=== PATIENT | female | born 1960 | race African-American/Black ===

== ENCOUNTER 2016-10-08 20:27 | Emergency (ER) | payer OTHER ==
[~2016-10-08] VITALS: Ht 172.7 cm; Wt 129.1 kg
[~2016-10-08 20:27] MED LIST: ASPI81 PO; CARV20CR PO; DILT240C93 PO; DIVA500T52 PO; LISI-660 PO
[2016-10-08 21:09] LABS: BASOPHILS % (AUTO) 0.1 % (0.0-2.0); HEMATOCRIT 33.1 % (36-46); HEMOGLOBIN 10.4 g/dL (12.0-16.0); LYMPHOCYTES # (AUTO) 1.4 K/uL (1.0-4.8); LYMPHOCYTES % (AUTO) 22.8 % (22.0-44.0); MEAN CORPUSCULAR HEMOGLOBIN 25.6 pg (26.0-34.0); MEAN CORPUSCULAR HGB CONC 31.5 G/dL (31.0-37.0); MEAN CORPUSCULAR VOLUME 81 fL (80-100); MONOCYTES # (AUTO) 0.7 K/uL (0.1-1.0); MONOCYTES % (AUTO) 11.7 % (2.0-9.0); NEUTROPHILS # (AUTO) 3.9 K/uL (1.8-7.7); NEUTROPHILS % (AUTO) 63.4 % (40.0-70.0); PLATELET COUNT (AUTO) 194 K/uL (150-450); RED BLOOD CELL COUNT(AUTO) 4.08 MIL/uL (4.00-5.20); RED CELL DISTRIBUTION WIDTH 19.3 % (11.5-14.5); WHITE BLOOD COUNT (AUTO) 6.2 K/uL (4.5-11.0)
[2016-10-08] MEDS ORDERED: LORazepam 2 MG TABLET PO ONE (21:15)
[2016-10-08] MEDS ORDERED: LORazepam 2 MG/ML VIAL IM ONE (21:15)
[2016-10-08] MEDS ORDERED: HALOPERIDOL LACTATE 5 MG/ML VIAL IM ONE (21:15)
[2016-10-08] MEDS ORDERED: ACETAMINOPHEN 325 MG TABLET PO ONE (21:15)
[2016-10-08] MEDS ORDERED: HALOPERIDOL 5 MG TABLET PO ONE (21:15)
[2016-10-08] MEDS ORDERED: ASPIRIN 81 MG CHEWABLE TABLET PO ONE (21:15)
[2016-10-08 21:20] LABS: ANION GAP 7 mmol/L (8-16); CALCIUM, TOTAL 8.7 mg/dL (8.8-10.5); CARBON DIOXIDE 29 mmol/L (22-29); CHLORIDE 104 mmol/L (98-107); GLOMERULAR FILTR. RATE CALC 56 mL/min (>60); INR 1.2 (0.9-1.1); POTASSIUM 3.8 mmol/L (3.5-5.1); PROTHROMBIN TIME 12.7 SEC (9.4-11.6); SODIUM SERUM 140 mmol/L (136-145); UREA NITROGEN, BLOOD 20 mg/dL (7-18)
[2016-10-08 21:24] LABS: ALANINE AMINOTRANSFERASE 29 U/L (12-78); ALBUMIN 3.1 g/dL (3.4-5.0); ASPARTATE AMINOTRANSFERASE 8 U/L (15-37); BILIRUBIN,TOTAL 0.1 mg/dL (0.1-1.0); CREATINE KINASE, TOTAL 56 U/L (26-192); TOTAL PROTEIN, SERUM 6.9 g/dL (6.4-8.2)
[2016-10-08 21:35] LABS: B-TYPE NATRIURETIC PEPTIDE 495 pg/mL (0-100)
[2016-10-08 21:36] LABS: RBC MORPHOLOGY COMMENT ABNORMAL RBC MORPH
[2016-10-08] MEDS ORDERED: KETOROLAC TROMETHAMINE 30 MG/ML VIAL IVP ONE (21:45)
[2016-10-08] MEDS ORDERED: DILTIAZEM HCL 5 MG/ML 5 ML VIAL IVP ONE (22:00)
[2016-10-08] MEDS ORDERED: DILTIAZEM HCL 60 MG TABLET PO ONE (22:15)
[2016-10-08] MEDS ORDERED: KETOROLAC TROMETHAMINE 60 MG/2 ML VIAL IM ONE (22:15)
[2016-10-08 22:26] LABS: GLUCOSE,POINT OF CARE 103 MG/DL (70-110)
[2016-10-08 22:33] VITALS: BP 153/57
[2016-10-08 22:55] LABS: APPEARANCE,URINE CLEAR (CLEAR); GLUCOSE, URINE (UA) NEGATIVE (NEGATIVE); KETONES,URINE NEGATIVE (NEGATIVE); LEUKOCYTE ESTERASE ,URINE LARGE (NEGATIVE); OCCULT BLOOD,URINE NEGATIVE (NEGATIVE); PROTEIN,URINE NEGATIVE (NEGATIVE)
[2016-10-08 23:07] LABS: ADD UA MICROSCOPIC YES
[2016-10-08 23:12] LABS: SQUAMOUS EPITHELIAL CELL,UR Moderate /LPF (None Seen)
[2016-10-08 23:13] LABS: RBC,URINE None Seen /HPF (0-2)
== END 2016-10-08 22:47 | disposition left against medical advice (07) ==
LOC: EMS 20:32
DX: I11.0 Hypertensive heart disease with heart failure (principal); I50.9 Heart failure, unspecified; I25.10 Atherosclerotic heart disease of native coronary artery without angina pectoris; E78.00 Pure hypercholesterolemia, unspecified; R60.0 Localized edema; Z79.82 Long term (current) use of aspirin
CPT/HCPCS: 36415; 71010; 80053; 80307; 81001; 82550; 82948; 82962; 83880; 84484; 85025; 85610; 85730; 87086; 93005; 96372; 99285; G0480; J1630; J1885; J2060

== ENCOUNTER 2016-10-10 03:17 | Emergency (ER) | payer OTHER ==
[~2016-10-10] VITALS: Ht 172.7 cm; Wt 127.3 kg
[2016-10-10 04:14] LABS: BASOPHILS % (AUTO) 0.5 % (0.0-2.0); EOSINOPHILS % (AUTO) 2.5 % (1.0-6.0); HEMATOCRIT 31.7 % (36-46); HEMOGLOBIN 9.8 g/dL (12.0-16.0); MEAN CORPUSCULAR HEMOGLOBIN 25.6 pg (26.0-34.0); MEAN CORPUSCULAR HGB CONC 31.1 G/dL (31.0-37.0); MEAN CORPUSCULAR VOLUME 82 fL (80-100); MONOCYTES # (AUTO) 0.4 K/uL (0.1-1.0); NEUTROPHILS # (AUTO) 3.4 K/uL (1.8-7.7); PLATELET COUNT (AUTO) 169 K/uL (150-450); RED BLOOD CELL COUNT(AUTO) 3.85 MIL/uL (4.00-5.20); RED CELL DISTRIBUTION WIDTH 19.3 % (11.5-14.5)
[2016-10-10] MEDS ORDERED: DILTIAZEM HCL 5 MG/ML 5 ML VIAL IVP ONE (04:15)
[2016-10-10] MEDS ORDERED: ASPIRIN 325 MG TABLET PO ONE (04:15)
[2016-10-10] MEDS ORDERED: KETOROLAC TROMETHAMINE 30 MG/ML VIAL IVP ONE (04:15)
[2016-10-10] MEDS ORDERED: NITROGLYCERIN 0.4 MG SUBLINGUAL TABLET #25 SL ONE (04:15)
[2016-10-10 04:19] LABS: ANION GAP 8 mmol/L (8-16); CALCIUM, TOTAL 8.1 mg/dL (8.8-10.5); CARBON DIOXIDE 27 mmol/L (22-29); CHLORIDE 106 mmol/L (98-107); CREATININE 1.17 mg/dL (0.60-1.30); GLOMERULAR FILTR. RATE CALC 58 mL/min (>60); POTASSIUM 4.2 mmol/L (3.5-5.1); SODIUM SERUM 141 mmol/L (136-145); UREA NITROGEN, BLOOD 24 mg/dL (7-18)
[2016-10-10 04:26] LABS: ALANINE AMINOTRANSFERASE 18 U/L (12-78); ALBUMIN 3.2 g/dL (3.4-5.0); ASPARTATE AMINOTRANSFERASE 12 U/L (15-37); BILIRUBIN,TOTAL 0.3 mg/dL (0.1-1.0); CREATINE KINASE, TOTAL 44 U/L (26-192); TOTAL PROTEIN, SERUM 6.4 g/dL (6.4-8.2)
[2016-10-10 05:01] LABS: B-TYPE NATRIURETIC PEPTIDE 485 pg/mL (0-100)
[2016-10-10 05:44] VITALS: BP 121/89
[2016-10-10] MEDS ORDERED: ACETAMINOPHEN 325 MG TABLET PO PRN (05:45)
[2016-10-10] MEDS ORDERED: ONDANSETRON HCL 4 MG/2 ML VIAL IVP PRN (05:45)
[2016-10-10] MEDS ORDERED: 0.9% SODIUM CHLORIDE 10 ML SYRINGE IVP PRN (05:45)
[2016-10-10] MEDS ORDERED: OxyCODONE HCL/ACETAMINOPHEN 5-325 MG TABLET PO PRN ×2 (05:45)
[2016-10-10] MEDS ORDERED: MAGNESIUM HYDROXIDE SUSPENSION 30 ML UDCUP PO PRN (05:45)
[2016-10-10] MEDS ORDERED: NITROGLYCERIN 2% (1 GM=INCH) PACKET TP SCH (06:00)
[2016-10-10 08:15] LABS: APPEARANCE,URINE TURBID (CLEAR); GLUCOSE, URINE (UA) NEGATIVE (NEGATIVE); KETONES,URINE NEGATIVE (NEGATIVE); LEUKOCYTE ESTERASE ,URINE LARGE (NEGATIVE); OCCULT BLOOD,URINE NEGATIVE (NEGATIVE); PH,URINE 5.5 (5.0-8.0); PROTEIN,URINE TRACE (NEGATIVE)
[2016-10-10 08:17] LABS: ADD UA MICROSCOPIC YES
[2016-10-10 08:25] LABS: RBC,URINE 0-2 /HPF (0-2)
[2016-10-10 08:26] LABS: CALCIUM OXALATE CRYSTALS,UR Moderate /LPF (None Seen); SQUAMOUS EPITHELIAL CELL,UR Few /LPF (None Seen)
[2016-10-10] MEDS ORDERED: PANTOPRAZOLE SODIUM 40 MG/VIAL IVP SCH (09:00)
[2016-10-10] MEDS ORDERED: DILTIAZEM HCL CD 240 MG ER CAPSULE PO SCH (09:00)
[2016-10-10] MEDS ORDERED: DOCUSATE SODIUM 100 MG CAPSULE PO SCH (09:00)
[2016-10-10] MEDS ORDERED: ASPIRIN 81 MG CHEWABLE TABLET PO SCH (09:00)
[2016-10-10] MEDS ORDERED: CARVEDILOL PHOSPHATE 20 MG CR CAPSULE PO SCH (09:00)
[2016-10-10] MEDS ORDERED: LISINOPRIL 5 MG TABLET PO SCH (09:00)
[2016-10-10] MEDS ORDERED: DIVALPROEX SODIUM 500 MG ER TABLET PO SCH (21:00)
== END 2016-10-10 06:06 | disposition left against medical advice (07) ==
LOC: EMS 03:19
DX: I11.0 Hypertensive heart disease with heart failure (principal); I50.9 Heart failure, unspecified; I48.91 Unspecified atrial fibrillation; E78.00 Pure hypercholesterolemia, unspecified; F20.9 Schizophrenia, unspecified; F12.10 Cannabis abuse, uncomplicated; Z79.82 Long term (current) use of aspirin
CPT/HCPCS: 36415; 71010; 80053; 80307; 81001; 82550; 83880; 84484; 85025; 87086; 93005; 96374; 96375; 99285; G0480; J1885; J3490

== ENCOUNTER 2016-10-13 19:19 | Emergency (ER) | payer OTHER ==
[~2016-10-13] VITALS: Ht 172.7 cm; Wt 90.5 kg
[2016-10-13] MEDS ORDERED: KETOROLAC TROMETHAMINE 60 MG/2 ML VIAL IM ONE (21:45)
[2016-10-13 22:12] VITALS: BP 141/82
== END 2016-10-13 22:12 | disposition home or self-care (01) ==
LOC: EMS 19:20
DX: M79.672 Pain in left foot (principal); M79.671 Pain in right foot; I11.0 Hypertensive heart disease with heart failure; I50.9 Heart failure, unspecified; E78.00 Pure hypercholesterolemia, unspecified; Z79.4 Long term (current) use of insulin
CPT/HCPCS: 96372; 99283; J1885

== ENCOUNTER 2016-10-20 03:34 | Emergency (ER) | payer OTHER ==
[~2016-10-20] VITALS: Ht 167.6 cm; Wt 140.9 kg
[2016-10-20] MEDS ORDERED: DILTIAZEM HCL 5 MG/ML 5 ML VIAL IVP ONE (04:15)
[2016-10-20 04:45] VITALS: BP 115/95
[2016-10-20] MEDS ORDERED: DILTIAZEM HCL 60 MG TABLET PO ONE (04:45)
== END 2016-10-20 05:07 | disposition left against medical advice (07) ==
LOC: EMS 03:36
DX: I48.91 Unspecified atrial fibrillation (principal); R60.0 Localized edema; F20.9 Schizophrenia, unspecified; I11.0 Hypertensive heart disease with heart failure; I50.9 Heart failure, unspecified; E78.00 Pure hypercholesterolemia, unspecified; Z79.82 Long term (current) use of aspirin
CPT/HCPCS: 93005; 99285

== ENCOUNTER 2016-10-20 08:39 | Emergency (ER) | payer OTHER | END 2016-10-20 08:55 | disposition left against medical advice (07) | LOC: EMS 08:41 | DX: F25.9 Schizoaffective disorder, unspecified (principal); I11.0 Hypertensive heart disease with heart failure; I50.9 Heart failure, unspecified; I48.91 Unspecified atrial fibrillation; E78.00 Pure hypercholesterolemia, unspecified; Z79.82 Long term (current) use of aspirin | CPT/HCPCS: 99283 ==

== ENCOUNTER 2016-10-20 17:22 | Inpatient (IN) | payer MEDICAID, OTHER ==
[~2016-10-20] VITALS: Ht 170.2 cm; Wt 106.4 kg
[2016-10-20] MEDS ORDERED: DILTIAZEM HCL 60 MG TABLET PO ONE (18:30)
[2016-10-20 18:41] LABS: EOSINOPHILS % (AUTO) 2.2 % (1.0-6.0); HEMATOCRIT 32.5 % (36-46); HEMOGLOBIN 10.1 g/dL (12.0-16.0); LYMPHOCYTES # (AUTO) 1.1 K/uL (1.0-4.8); LYMPHOCYTES % (AUTO) 24.4 % (22.0-44.0); MEAN CORPUSCULAR HEMOGLOBIN 25.3 pg (26.0-34.0); MEAN CORPUSCULAR HGB CONC 30.9 G/dL (31.0-37.0); MEAN CORPUSCULAR VOLUME 82 fL (80-100); MONOCYTES # (AUTO) 0.5 K/uL (0.1-1.0); MONOCYTES % (AUTO) 11.2 % (2.0-9.0); NEUTROPHILS # (AUTO) 2.7 K/uL (1.8-7.7); NEUTROPHILS % (AUTO) 61.2 % (40.0-70.0); PLATELET COUNT (AUTO) 355 K/uL (150-450); RED BLOOD CELL COUNT(AUTO) 3.98 MIL/uL (4.00-5.20); RED CELL DISTRIBUTION WIDTH 23.9 % (11.5-14.5); WHITE BLOOD COUNT (AUTO) 4.4 K/uL (4.5-11.0)
[2016-10-20] MEDS ORDERED: DILTIAZEM HCL CD 120 MG ER CAPSULE PO ONE (18:45)
[2016-10-20 18:57] LABS: ANION GAP 9 mmol/L (8-16); CALCIUM, TOTAL 8.8 mg/dL (8.8-10.5); CARBON DIOXIDE 27 mmol/L (22-29); CHLORIDE 103 mmol/L (98-107); CREATININE 0.89 mg/dL (0.60-1.30); GLOMERULAR FILTR. RATE CALC > 60 mL/min (>60); POTASSIUM 3.9 mmol/L (3.5-5.1); SODIUM SERUM 139 mmol/L (136-145); UREA NITROGEN, BLOOD 18 mg/dL (7-18)
[2016-10-20 19:03] LABS: ALANINE AMINOTRANSFERASE 55 U/L (12-78); ALBUMIN 3.3 g/dL (3.4-5.0); ASPARTATE AMINOTRANSFERASE 31 U/L (15-37); BILIRUBIN,TOTAL 0.3 mg/dL (0.1-1.0)
[2016-10-20 19:06] LABS: RBC MORPHOLOGY COMMENT ABNORMAL RBC MORPH
[2016-10-20] MEDS ORDERED: HALOPERIDOL LACTATE 5 MG/ML VIAL IM ONE (19:30)
[2016-10-20] MEDS ORDERED: LORazepam 2 MG/ML VIAL IM ONE (19:30)
[2016-10-20] MEDS ORDERED: LORazepam 2 MG TABLET PO ONE (19:30)
[2016-10-20] MEDS ORDERED: DiphenhydrAMINE HCL 50 MG/ML VIAL IM ONE (19:30)
[2016-10-20] MEDS ORDERED: ZOLPIDEM TARTRATE 10 MG TABLET PO PRN (20:15)
[2016-10-20 21:11] VITALS: BP 98/67
[2016-10-21] MEDS: LORazepam 2 MG TABLET PO PRN ×2 (09:05→14:14)
[2016-10-21 10:15] VITALS: BP 150/72
[2016-10-21] MEDS ORDERED: MAG HYDROX/AL HYDROX/SIMETH ES 30 ML SUSPENSION UDCUP PO PRN (10:45)
[2016-10-21] MEDS ORDERED: LOPERAMIDE HCL 2 MG CAPSULE PO PRN (10:45)
[2016-10-21] MEDS ORDERED: MAGNESIUM HYDROXIDE SUSPENSION 30 ML UDCUP PO PRN (10:45)
[2016-10-21] MEDS ORDERED: ACETAMINOPHEN 325 MG TABLET PO PRN (10:45)
[2016-10-21] MEDS ORDERED: BACITRACIN 28.4 GM OINTMENT TP PRN (10:45)
[2016-10-21] MEDS ORDERED: CloNIDine HCL 0.1 MG TABLET PO PRN (10:45)
[2016-10-21] MEDS ORDERED: BENZOCAINE/MENTHOL LOZENGE [8 LOZENGES/PACKET] MM PRN (10:45)
[2016-10-21] MEDS ORDERED: ONDANSETRON HCL 4 MG TABLET PO PRN (10:45)
[2016-10-21] MEDS ORDERED: PETROLATUM,WHITE 71 GM JELLY TP PRN (10:45)
[2016-10-21] MEDS: CARVEDILOL PHOSPHATE 20 MG CR CAPSULE PO SCH (11:47)
[2016-10-21] MEDS: FUROSEMIDE 40 MG TABLET PO SCH (11:47)
[2016-10-21 12:17] VITALS: BP 136/83
[2016-10-21] MEDS: TraMADol HCL 50 MG TABLET PO PRN ×2 (12:17→20:42)
[2016-10-21] MEDS: QUEtiapine FUMARATE 100 MG TABLET PO PRN (14:14)
[2016-10-21 18:02] VITALS: BP 127/87
[2016-10-21] MEDS: DIVALPROEX SODIUM 500 MG ER TABLET PO SCH (20:22)
[2016-10-21 20:40] VITALS: BP 130/88
[2016-10-22 02:31] VITALS: BP 120/91
[2016-10-22] MEDS: TraMADol HCL 50 MG TABLET PO PRN ×2 (02:44→09:56)
[2016-10-22] MEDS: LORazepam 2 MG TABLET PO PRN (04:10)
[2016-10-22] MEDS: LEVOTHYROXINE SODIUM 25 MCG TABLET PO SCH (06:05)
[2016-10-22] MEDS: CARVEDILOL PHOSPHATE 20 MG CR CAPSULE PO SCH (08:10)
[2016-10-22] MEDS: ASPIRIN 81 MG CHEWABLE TABLET PO SCH (08:10)
[2016-10-22] MEDS: QUEtiapine FUMARATE 100 MG TABLET PO PRN (08:10)
[2016-10-22] MEDS: HALOPERIDOL 5 MG TABLET PO SCH (08:10)
[2016-10-22] MEDS: FUROSEMIDE 40 MG TABLET PO SCH (08:11)
[2016-10-22] MEDS: DILTIAZEM HCL CD 240 MG ER CAPSULE PO SCH (08:11)
[2016-10-22] MEDS: LISINOPRIL 5 MG TABLET PO SCH (08:11)
[2016-10-22 09:53] VITALS: BP 123/78
[2016-10-22 20:36] VITALS: BP 115/57
[2016-10-22] MEDS: DIVALPROEX SODIUM 500 MG ER TABLET PO SCH (21:32)
[2016-10-23] MEDS: LEVOTHYROXINE SODIUM 25 MCG TABLET PO SCH (06:43)
[2016-10-23 08:00] VITALS: BP 125/79
[2016-10-23] MEDS: CARVEDILOL PHOSPHATE 20 MG CR CAPSULE PO SCH (09:17)
[2016-10-23] MEDS: LORazepam 2 MG TABLET PO PRN (09:17)
[2016-10-23] MEDS: QUEtiapine FUMARATE 100 MG TABLET PO PRN (09:17)
[2016-10-23] MEDS: DILTIAZEM HCL CD 240 MG ER CAPSULE PO SCH (09:17)
[2016-10-23] MEDS: HALOPERIDOL 5 MG TABLET PO SCH (09:17)
[2016-10-23] MEDS: POTASSIUM CHLORIDE 10 MEQ ER TABLET PO SCH (09:17)
[2016-10-23] MEDS: LISINOPRIL 5 MG TABLET PO SCH (09:17)
[2016-10-23] MEDS: FUROSEMIDE 40 MG TABLET PO SCH (09:18)
[2016-10-23] MEDS: ASPIRIN 81 MG CHEWABLE TABLET PO SCH (09:19)
[2016-10-23] MEDS: IBUPROFEN 600 MG TABLET PO PRN (09:19)
[2016-10-23 16:00] VITALS: BP 106/75
[2016-10-23] MEDS: DIVALPROEX SODIUM 500 MG ER TABLET PO SCH (20:27)
[2016-10-23] MEDS: TraMADol HCL 50 MG TABLET PO PRN (23:54)
[2016-10-24] VITALS (7 sets, daily range): BP systolic 106–120; BP diastolic 58–71
[2016-10-24] MEDS: IBUPROFEN 600 MG TABLET PO PRN (03:59)
[2016-10-24] MEDS: ALBUTEROL SULFATE HFA 90 MCG/PUFF 8 GM INHALER IH PRN ×3 (04:15→23:52)
[2016-10-24] MEDS: LEVOTHYROXINE SODIUM 25 MCG TABLET PO SCH (07:00)
[2016-10-24] MEDS: FUROSEMIDE 40 MG TABLET PO SCH (08:07)
[2016-10-24] MEDS: TraMADol HCL 50 MG TABLET PO PRN ×3 (08:07→23:42)
[2016-10-24] MEDS: CARVEDILOL PHOSPHATE 20 MG CR CAPSULE PO SCH (08:07)
[2016-10-24] MEDS: LORazepam 2 MG TABLET PO PRN (08:07)
[2016-10-24] MEDS: HALOPERIDOL 5 MG TABLET PO SCH (08:07)
[2016-10-24] MEDS: QUEtiapine FUMARATE 100 MG TABLET PO PRN (08:07)
[2016-10-24] MEDS: ASPIRIN 81 MG CHEWABLE TABLET PO SCH (08:07)
[2016-10-24] MEDS: POTASSIUM CHLORIDE 10 MEQ ER TABLET PO SCH (08:07)
[2016-10-24] MEDS: LISINOPRIL 5 MG TABLET PO SCH (08:07)
[2016-10-24] MEDS: DILTIAZEM HCL CD 240 MG ER CAPSULE PO SCH (08:08)
[2016-10-24] MEDS ORDERED: HALOPERIDOL DECANOATE 50 MG/ML VIAL IM SCH (18:00)
[2016-10-24] MEDS: DIVALPROEX SODIUM 500 MG ER TABLET PO SCH (20:37)
[2016-10-25] MEDS: TraMADol HCL 50 MG TABLET PO PRN (05:46)
[2016-10-25] MEDS: LEVOTHYROXINE SODIUM 25 MCG TABLET PO SCH (06:03)
[2016-10-25 08:45] VITALS: BP 140/91
[2016-10-25] MEDS: HALOPERIDOL 5 MG TABLET PO SCH (09:39)
[2016-10-25] MEDS: ASPIRIN 81 MG CHEWABLE TABLET PO SCH (09:39)
[2016-10-25] MEDS: POTASSIUM CHLORIDE 10 MEQ ER TABLET PO SCH (09:39)
[2016-10-25] MEDS: FUROSEMIDE 40 MG TABLET PO SCH (09:40)
[2016-10-25] MEDS: CARVEDILOL PHOSPHATE 20 MG CR CAPSULE PO SCH (09:40)
[2016-10-25] MEDS: LISINOPRIL 5 MG TABLET PO SCH (09:40)
[2016-10-25] MEDS: DILTIAZEM HCL CD 240 MG ER CAPSULE PO SCH (09:40)
[2016-10-25] MEDS ORDERED: HALO5 PO (15:37)
[2016-10-25] MEDS ORDERED: LEVO25TA9 PO (15:37)
[2016-10-25] MEDS ORDERED: KDUR10 PO (15:37)
[2016-10-25] MEDS ORDERED: FURO40 PO (15:37)
[2016-10-25] MEDS ORDERED: HALOD50I IM (15:37)
== END 2016-10-25 16:43 | disposition home or self-care (01) | DRG 750 ==
LOC: EMS 17:27 → 3EC 20:47
PROVIDERS: ADMIT Psychiatry & Neurology Psychiatry; ATTEND Psychiatry & Neurology Psychiatry
DX: F25.0 Schizoaffective disorder, bipolar type (principal); I11.0 Hypertensive heart disease with heart failure; I50.32 Chronic diastolic (congestive) heart failure; E03.9 Hypothyroidism, unspecified; E55.9 Vitamin D deficiency, unspecified; E66.9 Obesity, unspecified; E78.00 Pure hypercholesterolemia, unspecified; F12.90 Cannabis use, unspecified, uncomplicated; F17.210 Nicotine dependence, cigarettes, uncomplicated; F22 Delusional disorders; I48.91 Unspecified atrial fibrillation; J44.9 Chronic obstructive pulmonary disease, unspecified; Z71.6 Tobacco abuse counseling; Z68.32 Body mass index [BMI] 32.0-32.9, adult; Z90.49 Acquired absence of other specified parts of digestive tract; Z91.19 Patient's noncompliance with other medical treatment and regimen; Z79.82 Long term (current) use of aspirin; Z79.899 Other long term (current) drug therapy; Z56.0 Unemployment, unspecified
CPT/HCPCS: 93970; 96372; 99285; G0480; J1200; J1630; J1631; J2060; J3535

== ENCOUNTER 2016-10-25 23:46 | Emergency (ER) | payer MEDICAID ==
[~2016-10-25 23:46] MED LIST changes: +FURO40 PO; +HALO5 PO; +HALOD50I IM; +KDUR10 PO; +LEVO25TA9 PO
== END 2016-10-26 00:48 | disposition left against medical advice (07) ==
LOC: EMS 23:48
DX: G47.30 Sleep apnea, unspecified (principal); Z53.21 Procedure and treatment not carried out due to patient leaving prior to being seen by health care provider

== ENCOUNTER 2016-10-26 16:12 | Emergency (ER) | payer MEDICAID, OTHER ==
[~2016-10-26] VITALS: Ht 167.6 cm; Wt 129.1 kg
[2016-10-26 18:13] LABS: APPEARANCE,URINE CLEAR (CLEAR); GLUCOSE, URINE (UA) NEGATIVE (NEGATIVE); KETONES,URINE TRACE mg/dL (NEGATIVE); LEUKOCYTE ESTERASE ,URINE LARGE (NEGATIVE); OCCULT BLOOD,URINE NEGATIVE (NEGATIVE); PROTEIN,URINE NEGATIVE (NEGATIVE)
[2016-10-26 18:25] LABS: BASOPHILS % (AUTO) 0.5 % (0.0-2.0); EOSINOPHILS % (AUTO) 3.2 % (1.0-6.0); HEMATOCRIT 28.5 % (36-46); HEMOGLOBIN 9.1 g/dL (12.0-16.0); LYMPHOCYTES # (AUTO) 1.2 K/uL (1.0-4.8); LYMPHOCYTES % (AUTO) 34.1 % (22.0-44.0); MEAN CORPUSCULAR HEMOGLOBIN 26.2 pg (26.0-34.0); MEAN CORPUSCULAR HGB CONC 31.9 G/dL (31.0-37.0); MEAN CORPUSCULAR VOLUME 82 fL (80-100); MONOCYTES # (AUTO) 0.3 K/uL (0.1-1.0); MONOCYTES % (AUTO) 9.9 % (2.0-9.0); NEUTROPHILS # (AUTO) 1.8 K/uL (1.8-7.7); NEUTROPHILS % (AUTO) 52.3 % (40.0-70.0); PLATELET COUNT (AUTO) 264 K/uL (150-450); RED BLOOD CELL COUNT(AUTO) 3.46 MIL/uL (4.00-5.20); RED CELL DISTRIBUTION WIDTH 24.3 % (11.5-14.5); WHITE BLOOD COUNT (AUTO) 3.5 K/uL (4.5-11.0)
[2016-10-26 18:27] LABS: ADD UA MICROSCOPIC YES
[2016-10-26] MEDS ORDERED: DILTIAZEM HCL 5 MG/ML 5 ML VIAL IVP ONE (18:30)
[2016-10-26 18:39] LABS: ANION GAP 6 mmol/L (8-16); CARBON DIOXIDE 29 mmol/L (22-29); CHLORIDE 106 mmol/L (98-107); CREATININE 0.97 mg/dL (0.60-1.30); GLOMERULAR FILTR. RATE CALC > 60 mL/min (>60); POTASSIUM 4.3 mmol/L (3.5-5.1); SODIUM SERUM 141 mmol/L (136-145); UREA NITROGEN, BLOOD 16 mg/dL (7-18)
[2016-10-26 18:43] LABS: SQUAMOUS EPITHELIAL CELL,UR Moderate /LPF (None Seen); URINALYSIS COMMENT Few Trichomonas seen; WBC,URINE 26-50 /HPF (0-5)
[2016-10-26 18:44] LABS: ALANINE AMINOTRANSFERASE 18 U/L (12-78); ALBUMIN 3.4 g/dL (3.4-5.0); ASPARTATE AMINOTRANSFERASE 11 U/L (15-37); BILIRUBIN,TOTAL 0.3 mg/dL (0.1-1.0)
[2016-10-26] MEDS ORDERED: KETOROLAC TROMETHAMINE 60 MG/2 ML VIAL IM ONE (18:45)
[2016-10-26] MEDS ORDERED: DILTIAZEM HCL 60 MG TABLET PO ONE (18:45)
[2016-10-26 18:46] LABS: RBC MORPHOLOGY COMMENT ABNORMAL RBC MORPH
[2016-10-26 18:59] LABS: B-TYPE NATRIURETIC PEPTIDE 141 pg/mL (0-100)
[2016-10-26 20:39] VITALS: BP 125/81
== END 2016-10-26 20:39 | disposition home or self-care (01) ==
LOC: EMS 16:17
DX: R07.89 Other chest pain (principal); R60.9 Edema, unspecified; R26.2 Difficulty in walking, not elsewhere classified; I11.0 Hypertensive heart disease with heart failure; I50.9 Heart failure, unspecified; E78.00 Pure hypercholesterolemia, unspecified; I48.91 Unspecified atrial fibrillation; Z79.82 Long term (current) use of aspirin
CPT/HCPCS: 36415; 80053; 80307; 81001; 83880; 84484; 85025; 87086; 93005; 96372; 99285; J1885

== ENCOUNTER 2016-10-30 20:03 | Emergency (ER) | payer OTHER ==
[2016-10-30 21:07] LABS: GLUCOSE COMMENT 1 Doctor Notified; GLUCOSE,POINT OF CARE 140 MG/DL (70-110)
== END 2016-10-30 20:30 | disposition left against medical advice (07) ==
LOC: EMS 20:06
DX: M79.606 Pain in leg, unspecified (principal); Z53.21 Procedure and treatment not carried out due to patient leaving prior to being seen by health care provider
CPT/HCPCS: 82962

== ENCOUNTER 2016-10-30 20:59 | Emergency (ER) | payer OTHER ==
[~2016-10-30] VITALS: Ht 170.2 cm; Wt 100.0 kg
[2016-10-30 22:22] LABS: HEMATOCRIT 35.6 % (36-46); HEMOGLOBIN 11.1 g/dL (12.0-16.0); MEAN CORPUSCULAR HGB CONC 31.3 G/dL (31.0-37.0); MEAN CORPUSCULAR VOLUME 83 fL (80-100); PLATELET COUNT (AUTO) 166 K/uL (150-450); RED BLOOD CELL COUNT(AUTO) 4.29 MIL/uL (4.00-5.20)
[2016-10-30 22:39] LABS: ALANINE AMINOTRANSFERASE 40 U/L (12-78); ASPARTATE AMINOTRANSFERASE 30 U/L (15-37); BILIRUBIN,TOTAL 0.4 mg/dL (0.1-1.0); CALCIUM, TOTAL 8.9 mg/dL (8.8-10.5); CARBON DIOXIDE 26 mmol/L (22-29); CREATININE 1.01 mg/dL (0.60-1.30); GLOMERULAR FILTR. RATE CALC > 60 mL/min (>60); TOTAL PROTEIN, SERUM 7.6 g/dL (6.4-8.2); UREA NITROGEN, BLOOD 17 mg/dL (7-18)
[2016-10-30 22:40] LABS: BASOPHILS % (AUTO) 0.2 % (0.0-2.0); EOSINOPHILS % (AUTO) 1.25 % (1.0-6.0); LYMPHOCYTES % (AUTO) 24.9 % (22.0-44.0); MONOCYTES % (AUTO) 7.7 % (2.0-9.0); NEUTROPHILS % (AUTO) 65.9 % (40.0-70.0)
[2016-10-30 22:41] LABS: BASOPHILS # (AUTO) 0.01 K/uL (0.00-0.20); EOSINOPHILS # (AUTO) 0.04 K/uL (0.00-0.70); LYMPHOCYTES # (AUTO) 0.8 K/uL (1.0-4.8); MONOCYTES # (AUTO) 0.2 K/uL (0.1-1.0)
[2016-10-30 22:42] LABS: RBC MORPHOLOGY COMMENT ABNORMAL RBC MORPH
[2016-10-30 22:45] LABS: BAND NEUTROPHILS % (MANUAL) 2 % (1-5); EOSINOPHILS % (MANUAL) 1 % (1-6); LYMPHOCYTES % (MANUAL) 15 % (22-44); TOTAL CELLS COUNTED 100
[2016-10-30 22:46] LABS: ALBUMIN 3.6 g/dL (3.4-5.0); ANION GAP 12 mmol/L (8-16); CHLORIDE 103 mmol/L (98-107); POTASSIUM 4.1 mmol/L (3.5-5.1); SODIUM SERUM 141 mmol/L (136-145)
[2016-10-30 23:28] LABS: THYROID STIMULATING HORMONE 3.65 uIU/mL (0.36-3.74)
[2016-10-30 23:29] LABS: VALPROIC ACID < 3 mcg/mL (50-100)
[2016-10-31] MEDS ORDERED: KETOROLAC TROMETHAMINE 30 MG/ML VIAL IVP ONE (00:15)
[2016-10-31] MEDS ORDERED: FUROSEMIDE 40 MG/4 ML VIAL IVP ONE (00:15)
[2016-10-31] MEDS ORDERED: ALBUTEROL SULFATE 2.5 MG/0.5 ML NEB SOLUTION NEB ONE (00:15)
[2016-10-31] MEDS ORDERED: NITROGLYCERIN 2% (1 GM=INCH) PACKET TP ONE (00:15)
[2016-10-31] MEDS ORDERED: IPRATROPIUM BROMIDE 0.5 MG/2.5 ML NEB SOLUTION NEB ONE (00:15)
[2016-10-31 00:39] LABS: APPEARANCE,URINE CLEAR (CLEAR); GLUCOSE, URINE (UA) NEGATIVE (NEGATIVE); KETONES,URINE NEGATIVE (NEGATIVE); LEUKOCYTE ESTERASE ,URINE MODERATE (NEGATIVE); OCCULT BLOOD,URINE TRACE (NEGATIVE); PROTEIN,URINE TRACE (NEGATIVE)
[2016-10-31 00:44] LABS: ADD UA MICROSCOPIC YES
[2016-10-31] MEDS ORDERED: DILTIAZEM HCL 5 MG/ML 5 ML VIAL IVP ONE (01:00)
[2016-10-31 01:02] LABS: RBC,URINE 0-2 /HPF (0-2); SQUAMOUS EPITHELIAL CELL,UR Few /LPF (None Seen)
[2016-10-31] MEDS ORDERED: NITROGLYCERIN 2% (1 GM=INCH) PACKET TP PRN (01:30)
[2016-10-31] MEDS ORDERED: MORPHINE SULFATE 2 MG/ML SYRINGE IVP PRN (01:30)
[2016-10-31] MEDS ORDERED: ZOLPIDEM TARTRATE 10 MG TABLET PO PRN (01:30)
[2016-10-31] MEDS ORDERED: ACETAMINOPHEN 325 MG TABLET PO PRN (01:30)
[2016-10-31] MEDS ORDERED: LORazepam 1 MG TABLET PO PRN (01:30)
[2016-10-31] MEDS ORDERED: NITROGLYCERIN 0.4 MG SUBLINGUAL TABLET #25 SL PRN (01:30)
[2016-10-31] MEDS ORDERED: DILTIAZEM HCL 125 MG in DEXTROSE 5%-WATER 100 ML IV PRN (01:45)
[2016-10-31] MEDS ORDERED: DIGOXIN 250 MCG/ML 2 ML AMP IVP ONE (05:00)
[2016-10-31] MEDS ORDERED: AMIODARONE HCL 150 MG in DEXTROSE 5%-WATER 97 ML IV ONE (05:15)
[2016-10-31] MEDS ORDERED: AMIODARONE HCL 360 MG in DEXTROSE 5%-WATER 242.8 ML IV ONE (05:30)
[2016-10-31 06:18] VITALS: BP 134/81
[2016-10-31] MEDS ORDERED: FUROSEMIDE 40 MG/4 ML VIAL IVP SCH (06:30)
[2016-10-31] MEDS ORDERED: LEVOTHYROXINE SODIUM 25 MCG TABLET PO SCH (06:30)
[2016-10-31] MEDS ORDERED: DOCUSATE SODIUM 100 MG CAPSULE PO SCH (09:00)
[2016-10-31] MEDS ORDERED: DILTIAZEM HCL CD 240 MG ER CAPSULE PO SCH (09:00)
[2016-10-31] MEDS ORDERED: CARVEDILOL PHOSPHATE 20 MG CR CAPSULE PO SCH (09:00)
[2016-10-31] MEDS ORDERED: POTASSIUM CHLORIDE 10 MEQ ER TABLET PO SCH (09:00)
[2016-10-31] MEDS ORDERED: LISINOPRIL 5 MG TABLET PO SCH (09:00)
[2016-10-31] MEDS ORDERED: PANTOPRAZOLE SODIUM 40 MG/VIAL IVP SCH (09:00)
[2016-10-31] MEDS ORDERED: ASPIRIN 81 MG CHEWABLE TABLET PO SCH (09:00)
[2016-10-31] MEDS ORDERED: HALOPERIDOL 5 MG TABLET PO SCH (09:00)
[2016-10-31] MEDS ORDERED: AMIODARONE HCL 540 MG in DEXTROSE 5%-WATER 239.2 ML IV ONE (11:30)
[2016-10-31] MEDS ORDERED: DIVALPROEX SODIUM 500 MG ER TABLET PO SCH (21:00)
[2016-11-01] MEDS ORDERED: AMIODARONE HCL 750 MG in DEXTROSE 5%-WATER 485 ML IV SCH (05:30)
[2016-11-07] MEDS ORDERED: HALOPERIDOL DECANOATE 50 MG/ML VIAL IM SCH (09:00)
== END 2016-10-31 08:06 | disposition left against medical advice (07) ==
LOC: EMS 21:01 → UNDOADMIN 10-31 03:06 → 5S 10-31 03:06
DX: I11.0 Hypertensive heart disease with heart failure (principal); I50.9 Heart failure, unspecified; F25.9 Schizoaffective disorder, unspecified; E78.00 Pure hypercholesterolemia, unspecified; I48.91 Unspecified atrial fibrillation; F17.210 Nicotine dependence, cigarettes, uncomplicated
CPT/HCPCS: 36415; 71010; 80053; 80164; 80307; 81001; 83880; 84443; 84484; 85025; 87077; 87086; 87186; 93005; 94640; 96374; 96375; 99285; J1885; J1940; J3490 ×2; J7060; J7613; J0282

== ENCOUNTER 2016-11-03 00:36 | Inpatient (IN) | payer OTHER ==
[~2016-11-03] VITALS: Ht 167.6 cm; Wt 104.4 kg
[2016-11-03 01:27] LABS: GLUCOSE,POINT OF CARE 144 MG/DL (70-110)
[2016-11-03 02:08] LABS: BASOPHILS % (AUTO) 0.4 % (0.0-2.0); EOSINOPHILS % (AUTO) 0.6 % (1.0-6.0); HEMATOCRIT 31.6 % (36-46); HEMOGLOBIN 9.6 g/dL (12.0-16.0); LYMPHOCYTES # (AUTO) 0.8 K/uL (1.0-4.8); LYMPHOCYTES % (AUTO) 11.1 % (22.0-44.0); MEAN CORPUSCULAR HEMOGLOBIN 25.5 pg (26.0-34.0); MEAN CORPUSCULAR HGB CONC 30.5 G/dL (31.0-37.0); MEAN CORPUSCULAR VOLUME 84 fL (80-100); MONOCYTES # (AUTO) 0.6 K/uL (0.1-1.0); MONOCYTES % (AUTO) 7.8 % (2.0-9.0); NEUTROPHILS # (AUTO) 5.7 K/uL (1.8-7.7); NEUTROPHILS % (AUTO) 80.1 % (40.0-70.0); PLATELET COUNT (AUTO) 240 K/uL (150-450); RED BLOOD CELL COUNT(AUTO) 3.79 MIL/uL (4.00-5.20); RED CELL DISTRIBUTION WIDTH 23.9 % (11.5-14.5); WHITE BLOOD COUNT (AUTO) 7.1 K/uL (4.5-11.0)
[2016-11-03] MEDS ORDERED: LORazepam 2 MG/ML VIAL IVP ONE ×2 (02:15→03:45)
[2016-11-03] MEDS ORDERED: ONDANSETRON HCL 4 MG/2 ML VIAL IVP ONE (02:15)
[2016-11-03] MEDS ORDERED: IPRATROPIUM BROMIDE 0.5 MG/2.5 ML NEB SOLUTION NEB ONE (02:15)
[2016-11-03] MEDS ORDERED: HYDROmorphone 2 MG/ML SYRINGE IVP ONE (02:15)
[2016-11-03] MEDS ORDERED: ALBUTEROL SULFATE 5 MG/ML 20 ML NEB SOLN [BULK] NEB ONE (02:15)
[2016-11-03] MEDS ORDERED: ASPIRIN 325 MG TABLET PO ONE ×2 (02:15→03:45)
[2016-11-03] MEDS ORDERED: FUROSEMIDE 40 MG/4 ML VIAL IVP ONE (02:15)
[2016-11-03 02:28] LABS: ANION GAP 7 mmol/L (8-16); CALCIUM, TOTAL 8.4 mg/dL (8.8-10.5); CARBON DIOXIDE 27 mmol/L (22-29); CHLORIDE 109 mmol/L (98-107); CREATININE 0.99 mg/dL (0.60-1.30); GLOMERULAR FILTR. RATE CALC > 60 mL/min (>60); POTASSIUM 3.9 mmol/L (3.5-5.1); SODIUM SERUM 143 mmol/L (136-145); UREA NITROGEN, BLOOD 27 mg/dL (7-18)
[2016-11-03 02:34] LABS: ALANINE AMINOTRANSFERASE 28 U/L (12-78); ALBUMIN 3.1 g/dL (3.4-5.0); ASPARTATE AMINOTRANSFERASE 17 U/L (15-37); B-TYPE NATRIURETIC PEPTIDE 323 pg/mL (0-100); BILIRUBIN,TOTAL 0.3 mg/dL (0.1-1.0); TOTAL PROTEIN, SERUM 6.7 g/dL (6.4-8.2)
[2016-11-03 02:57] LABS: APPEARANCE,URINE CLOUDY (CLEAR); GLUCOSE, URINE (UA) NEGATIVE (NEGATIVE); KETONES,URINE NEGATIVE (NEGATIVE); LEUKOCYTE ESTERASE ,URINE NEGATIVE (NEGATIVE); OCCULT BLOOD,URINE NEGATIVE (NEGATIVE); PH,URINE 5.5 (5.0-8.0); PROTEIN,URINE SEE CONFIRM (NEGATIVE)
[2016-11-03 02:58] LABS: RBC MORPHOLOGY COMMENT ABNORMAL RBC MORPH
[2016-11-03] MEDS ORDERED: DILTIAZEM HCL 5 MG/ML 5 ML VIAL IVP ONE (03:15)
[2016-11-03] MEDS ORDERED: 0.9% SODIUM CHLORIDE 10 ML SYRINGE IVP PRN (03:15)
[2016-11-03] MEDS ORDERED: DIGOXIN 250 MCG/ML 2 ML AMP IVP ONE (03:15)
[2016-11-03] MEDS ORDERED: ACETAMINOPHEN 325 MG TABLET PO PRN ×2 (03:15→06:30)
[2016-11-03] MEDS ORDERED: ONDANSETRON HCL 4 MG/2 ML VIAL IVP PRN ×2 (03:15→06:30)
[2016-11-03 03:29] LABS: SULFOSALICYLIC ACID,URINE 1+ (Negative)
[2016-11-03 03:30] LABS: SQUAMOUS EPITHELIAL CELL,UR Moderate /LPF (None Seen)
[2016-11-03 03:32] LABS: RBC,URINE 0-2 /HPF (0-2)
[2016-11-03] MEDS ORDERED: -PHARMACY VACCINE NOTE- MISC ONE ×2 (05:45)
[2016-11-03 05:53] VITALS: BP 121/85
[2016-11-03] MEDS ORDERED: ALBUTEROL SULFATE 2.5 MG/0.5 ML NEB SOLUTION NEB PRN (06:30)
[2016-11-03] MEDS ORDERED: MAGNESIUM HYDROXIDE SUSPENSION 30 ML UDCUP PO PRN (06:30)
[2016-11-03] MEDS ORDERED: ZOLPIDEM TARTRATE 5 MG TABLET PO PRN (06:30)
[2016-11-03] MEDS ORDERED: IPRATROPIUM BROMIDE 0.5 MG/2.5 ML NEB SOLUTION NEB PRN (06:30)
[2016-11-03] MEDS ORDERED: BISACODYL 10 MG RECTAL RECTAL SUPPOSITORY PR PRN (06:30)
[2016-11-03] MEDS: LEVOTHYROXINE SODIUM 25 MCG TABLET PO SCH (07:20)
[2016-11-03 07:54] VITALS: BP 112/65
[2016-11-03] MEDS: HALOPERIDOL 5 MG TABLET PO SCH (08:40)
[2016-11-03] MEDS: DILTIAZEM HCL CD 240 MG ER CAPSULE PO SCH (08:40)
[2016-11-03] MEDS: POTASSIUM CHLORIDE 10 MEQ ER TABLET PO SCH (08:40)
[2016-11-03] MEDS: CARVEDILOL PHOSPHATE 20 MG CR CAPSULE PO SCH (08:40)
[2016-11-03] MEDS: HYDROCODONE/ACETAMINOPHEN 5-325 MG TABLET PO PRN ×4 (08:40→23:40)
[2016-11-03] MEDS: HEPARIN SODIUM,PORCINE 5,000 UNITS/ML VIAL SQ SCH ×2 (08:40→20:30)
[2016-11-03 12:06] VITALS: BP 124/76
[2016-11-03] MEDS: LISINOPRIL 5 MG TABLET PO SCH (13:13)
[2016-11-03 16:26] VITALS: BP 110/76
[2016-11-03 19:31] VITALS: BP 113/63
[2016-11-03] MEDS: DIVALPROEX SODIUM 500 MG ER TABLET PO SCH (20:30)
[2016-11-03 23:16] VITALS: BP 119/71
[2016-11-04] VITALS (8 sets, daily range): BP systolic 94–125; BP diastolic 58–79
[2016-11-04] MEDS: LEVOTHYROXINE SODIUM 25 MCG TABLET PO SCH (05:52)
[2016-11-04] MEDS: HYDROCODONE/ACETAMINOPHEN 5-325 MG TABLET PO PRN ×4 (05:53→21:15)
[2016-11-04 07:17] LABS: BASOPHILS % (AUTO) 0.9 % (0.0-2.0); EOSINOPHILS % (AUTO) 3.8 % (1.0-6.0); HEMATOCRIT 29.7 % (36-46); HEMOGLOBIN 9.1 g/dL (12.0-16.0); LYMPHOCYTES # (AUTO) 1.3 K/uL (1.0-4.8); LYMPHOCYTES % (AUTO) 37.2 % (22.0-44.0); MEAN CORPUSCULAR HEMOGLOBIN 25.8 pg (26.0-34.0); MEAN CORPUSCULAR HGB CONC 30.8 G/dL (31.0-37.0); MEAN CORPUSCULAR VOLUME 84 fL (80-100); MONOCYTES # (AUTO) 0.4 K/uL (0.1-1.0); MONOCYTES % (AUTO) 10.1 % (2.0-9.0); NEUTROPHILS # (AUTO) 1.7 K/uL (1.8-7.7); RED BLOOD CELL COUNT(AUTO) 3.54 MIL/uL (4.00-5.20); RED CELL DISTRIBUTION WIDTH 24.7 % (11.5-14.5); WHITE BLOOD COUNT (AUTO) 3.6 K/uL (4.5-11.0)
[2016-11-04 07:18] LABS: ALANINE AMINOTRANSFERASE 25 U/L (12-78); ALBUMIN 2.8 g/dL (3.4-5.0); ANION GAP 6 mmol/L (8-16); ASPARTATE AMINOTRANSFERASE 18 U/L (15-37); BILIRUBIN,TOTAL 0.4 mg/dL (0.1-1.0); CALCIUM, TOTAL 8.3 mg/dL (8.8-10.5); CARBON DIOXIDE 29 mmol/L (22-29); CHLORIDE 106 mmol/L (98-107); CREATININE 0.77 mg/dL (0.60-1.30); GLOMERULAR FILTR. RATE CALC > 60 mL/min (>60); POTASSIUM 4.6 mmol/L (3.5-5.1); SODIUM SERUM 141 mmol/L (136-145); TOTAL PROTEIN, SERUM 6.3 g/dL (6.4-8.2); UREA NITROGEN, BLOOD 16 mg/dL (7-18)
[2016-11-04] MEDS: LISINOPRIL 5 MG TABLET PO SCH (09:00)
[2016-11-04] MEDS: CARVEDILOL PHOSPHATE 20 MG CR CAPSULE PO SCH (09:14)
[2016-11-04] MEDS: HALOPERIDOL 5 MG TABLET PO SCH (09:14)
[2016-11-04] MEDS: DILTIAZEM HCL CD 240 MG ER CAPSULE PO SCH (09:14)
[2016-11-04] MEDS: POTASSIUM CHLORIDE 10 MEQ ER TABLET PO SCH (09:14)
[2016-11-04] MEDS: ASPIRIN 81 MG CHEWABLE TABLET PO SCH (09:15)
[2016-11-04] MEDS: HEPARIN SODIUM,PORCINE 5,000 UNITS/ML VIAL SQ SCH ×2 (09:15→21:15)
[2016-11-04] MEDS: FUROSEMIDE 40 MG/4 ML VIAL IVP SCH (09:15)
[2016-11-04 09:58] LABS: PLATELET COUNT (AUTO) 192 K/uL (150-450)
[2016-11-04 09:59] LABS: RBC MORPHOLOGY COMMENT ABNORMAL RBC MORPH
[2016-11-04] MEDS: DIVALPROEX SODIUM 500 MG ER TABLET PO SCH (21:14)
[2016-11-05] MEDS: HYDROCODONE/ACETAMINOPHEN 5-325 MG TABLET PO PRN ×2 (02:27→06:52)
[2016-11-05 04:02] VITALS: BP 116/68
[2016-11-05] MEDS: LEVOTHYROXINE SODIUM 25 MCG TABLET PO SCH (05:56)
[2016-11-05 07:38] VITALS: BP 104/68
[2016-11-05] MEDS: LISINOPRIL 5 MG TABLET PO SCH (09:00)
[2016-11-05] MEDS: ASPIRIN 81 MG CHEWABLE TABLET PO SCH (09:13)
[2016-11-05] MEDS: POTASSIUM CHLORIDE 10 MEQ ER TABLET PO SCH (09:13)
[2016-11-05] MEDS: DILTIAZEM HCL CD 240 MG ER CAPSULE PO SCH (09:13)
[2016-11-05] MEDS: FUROSEMIDE 40 MG/4 ML VIAL IVP SCH (09:13)
[2016-11-05] MEDS: CARVEDILOL PHOSPHATE 20 MG CR CAPSULE PO SCH (09:13)
[2016-11-05] MEDS: HEPARIN SODIUM,PORCINE 5,000 UNITS/ML VIAL SQ SCH (09:13)
[2016-11-05] MEDS: HALOPERIDOL 5 MG TABLET PO SCH (09:14)
[2016-11-05] MEDS ORDERED: HYDR-3965 PO (10:50)
[2016-11-05 11:53] VITALS: BP 116/73
== END 2016-11-05 12:20 | disposition home or self-care (01) | DRG 201 ==
LOC: EMS 00:38 → 5S 04:00
PROVIDERS: ADMIT Internal Medicine; ATTEND Internal Medicine
DX: I48.91 Unspecified atrial fibrillation (principal); I50.33 Acute on chronic diastolic (congestive) heart failure; E44.1 Mild protein-calorie malnutrition; E55.9 Vitamin D deficiency, unspecified; J44.9 Chronic obstructive pulmonary disease, unspecified; F15.10 Other stimulant abuse, uncomplicated; D50.9 Iron deficiency anemia, unspecified; E03.9 Hypothyroidism, unspecified; F20.9 Schizophrenia, unspecified; D63.8 Anemia in other chronic diseases classified elsewhere; E66.9 Obesity, unspecified; E78.00 Pure hypercholesterolemia, unspecified; F17.210 Nicotine dependence, cigarettes, uncomplicated; F12.90 Cannabis use, unspecified, uncomplicated; I11.0 Hypertensive heart disease with heart failure; Z79.82 Long term (current) use of aspirin; Z79.899 Other long term (current) drug therapy; Z90.49 Acquired absence of other specified parts of digestive tract; Z68.37 Body mass index [BMI] 37.0-37.9, adult
CPT/HCPCS: 51701; 82962; 83605; 83735; 84100; 87040; 87081; 93005; 94640; 99285; G0480; J1160; J1170; J1644; J1940; J2060; J2405; J3490

== ENCOUNTER 2017-01-02 05:01 | Emergency (ER) | payer OTHER ==
[~2017-01-02] VITALS: Ht 170.2 cm; Wt 100.0 kg
[~2017-01-02 05:01] MED LIST changes: +HYDR-3965 PO
[2017-01-02 05:17] LABS: GLUCOSE,POINT OF CARE 148 MG/DL (70-110)
[2017-01-02] MEDS ORDERED: TraMADol HCL 50 MG TABLET PO ONE (06:45)
[2017-01-02 07:01] LABS: BASOPHILS % (AUTO) 0.3 % (0.0-2.0); EOSINOPHILS % (AUTO) 2.1 % (1.0-6.0); HEMATOCRIT 33.2 % (36-46); HEMOGLOBIN 10.5 g/dL (12.0-16.0); LYMPHOCYTES # (AUTO) 0.7 K/uL (1.0-4.8); LYMPHOCYTES % (AUTO) 20.1 % (22.0-44.0); MEAN CORPUSCULAR HEMOGLOBIN 26.8 pg (26.0-34.0); MEAN CORPUSCULAR HGB CONC 31.5 G/dL (31.0-37.0); MEAN CORPUSCULAR VOLUME 85 fL (80-100); MONOCYTES # (AUTO) 0.4 K/uL (0.1-1.0); MONOCYTES % (AUTO) 12.1 % (2.0-9.0); NEUTROPHILS # (AUTO) 2.3 K/uL (1.8-7.7); NEUTROPHILS % (AUTO) 65.4 % (40.0-70.0); PLATELET COUNT (AUTO) 187 K/uL (150-450); RED BLOOD CELL COUNT(AUTO) 3.91 MIL/uL (4.00-5.20)
[2017-01-02 07:04] LABS: WHITE BLOOD COUNT (AUTO) 3.5 K/uL (4.5-11.0)
[2017-01-02 07:14] LABS: INR 1.4 (0.9-1.1); PROTHROMBIN TIME 14.4 SEC (9.4-11.6)
[2017-01-02 07:21] LABS: B-TYPE NATRIURETIC PEPTIDE 401 pg/mL (0-100)
[2017-01-02 07:37] LABS: ALANINE AMINOTRANSFERASE 20 U/L (12-78); ALBUMIN 2.9 g/dL (3.4-5.0); ANION GAP 11 mmol/L (8-16); ASPARTATE AMINOTRANSFERASE 14 U/L (15-37); BILIRUBIN,TOTAL 0.4 mg/dL (0.1-1.0); CALCIUM, TOTAL 8.4 mg/dL (8.8-10.5); CARBON DIOXIDE 25 mmol/L (22-29); CHLORIDE 108 mmol/L (98-107); CREATINE KINASE MB 0.8 ng/mL (0-5); CREATINE KINASE, TOTAL 142 U/L (26-192); CREATININE 0.88 mg/dL (0.60-1.30); GLOMERULAR FILTR. RATE CALC > 60 mL/min (>60); SODIUM SERUM 144 mmol/L (136-145); TOTAL PROTEIN, SERUM 6.2 g/dL (6.4-8.2); UREA NITROGEN, BLOOD 16 mg/dL (7-18)
[2017-01-02 09:41] LABS: APPEARANCE,URINE TURBID (CLEAR); GLUCOSE, URINE (UA) NEGATIVE (NEGATIVE); KETONES,URINE NEGATIVE (NEGATIVE); LEUKOCYTE ESTERASE ,URINE SMALL (NEGATIVE); OCCULT BLOOD,URINE NEGATIVE (NEGATIVE); PROTEIN,URINE POS 1+ (NEGATIVE)
[2017-01-02 09:42] LABS: ADD UA MICROSCOPIC YES
[2017-01-02 09:44] LABS: RBC,URINE 0-2 /HPF (0-2); WBC,URINE 0-2 /HPF (0-5)
[2017-01-02 09:45] LABS: AMORPHOUS SEDIMENT,UR Many /LPF (None Seen); CALCIUM OXALATE CRYSTALS,UR Moderate /LPF (None Seen); SQUAMOUS EPITHELIAL CELL,UR Few /LPF (None Seen)
[2017-01-02] MEDS ORDERED: POTASSIUM CHLORIDE 20 MEQ ER TABLET PO ONE (09:45)
[2017-01-02 10:04] VITALS: BP 114/77
[2017-01-02] MEDS ORDERED: KETOROLAC TROMETHAMINE 60 MG/2 ML VIAL IM ONE (10:15)
== END 2017-01-02 10:13 | disposition home or self-care (01) ==
LOC: EMS 05:03
DX: M25.552 Pain in left hip (principal); E87.6 Hypokalemia; I11.0 Hypertensive heart disease with heart failure; I50.9 Heart failure, unspecified; E78.00 Pure hypercholesterolemia, unspecified; I48.91 Unspecified atrial fibrillation; F14.10 Cocaine abuse, uncomplicated; F17.210 Nicotine dependence, cigarettes, uncomplicated
CPT/HCPCS: 36415; 71010; 73503; 80053; 80307; 81001; 82550; 82553; 82962; 83880; 84484; 84703; 85025; 85610; 85730; 87086; 93005; 96372; 99285; J1885

== ENCOUNTER 2017-02-17 08:43 | Inpatient (IN) | payer OTHER ==
[~2017-02-17] VITALS: Ht 162.6 cm; Wt 92.8 kg
[2017-02-17] MEDS ORDERED: DILTIAZEM HCL 5 MG/ML 5 ML VIAL IVP ONE ×2 (09:00→10:45)
[2017-02-17] MEDS ORDERED: FUROSEMIDE 40 MG/4 ML VIAL IVP ONE (09:00)
[2017-02-17 09:06] LABS: BASOPHILS % (AUTO) 0.2 % (0.0-2.0); EOSINOPHILS % (AUTO) 0.9 % (1.0-6.0); HEMATOCRIT 33.3 % (36-46); HEMOGLOBIN 10.6 g/dL (12.0-16.0); LYMPHOCYTES # (AUTO) 0.7 K/uL (1.0-4.8); LYMPHOCYTES % (AUTO) 13.9 % (22.0-44.0); MEAN CORPUSCULAR HEMOGLOBIN 26.5 pg (26.0-34.0); MEAN CORPUSCULAR VOLUME 83 fL (80-100); MONOCYTES # (AUTO) 0.3 K/uL (0.1-1.0); MONOCYTES % (AUTO) 5.2 % (2.0-9.0); NEUTROPHILS # (AUTO) 3.9 K/uL (1.8-7.7); NEUTROPHILS % (AUTO) 79.8 % (40.0-70.0); PLATELET COUNT (AUTO) 279 K/uL (150-450); RED BLOOD CELL COUNT(AUTO) 4.01 MIL/uL (4.00-5.20); WHITE BLOOD COUNT (AUTO) 4.9 K/uL (4.5-11.0)
[2017-02-17 09:16] LABS: ANION GAP 10 mmol/L (8-16); CALCIUM, TOTAL 8.4 mg/dL (8.8-10.5); CARBON DIOXIDE 25 mmol/L (22-29); CHLORIDE 103 mmol/L (98-107); CREATININE 0.77 mg/dL (0.60-1.30); GLOMERULAR FILTR. RATE CALC > 60 mL/min (>60); POTASSIUM 3.7 mmol/L (3.5-5.1); SODIUM SERUM 138 mmol/L (136-145); UREA NITROGEN, BLOOD 13 mg/dL (7-18)
[2017-02-17 09:17] LABS: INR 1.3 (0.9-1.1); PROTHROMBIN TIME 13.7 SEC (9.4-11.6)
[2017-02-17 09:21] LABS: ALANINE AMINOTRANSFERASE 51 U/L (12-78); ALBUMIN 3.4 g/dL (3.4-5.0); ASPARTATE AMINOTRANSFERASE 20 U/L (15-37); BILIRUBIN,TOTAL 0.5 mg/dL (0.1-1.0); CREATINE KINASE, TOTAL 72 U/L (26-192); TOTAL PROTEIN, SERUM 6.9 g/dL (6.4-8.2)
[2017-02-17 09:31] LABS: B-TYPE NATRIURETIC PEPTIDE 660 pg/mL (0-100)
[2017-02-17 09:48] LABS: APPEARANCE,URINE CLEAR (CLEAR); GLUCOSE, URINE (UA) NEGATIVE (NEGATIVE); KETONES,URINE NEGATIVE (NEGATIVE); LEUKOCYTE ESTERASE ,URINE NEGATIVE (NEGATIVE); OCCULT BLOOD,URINE NEGATIVE (NEGATIVE); PROTEIN,URINE NEGATIVE (NEGATIVE)
[2017-02-17 09:49] LABS: ADD UA MICROSCOPIC NO
[2017-02-17 10:26] LABS: ABG A-A DIFF O2 63.3 mmHg (10-20.0); ABG BASE EXCESS 2.6 mmol/L (-2.0-3.0); ABG HCO3 26.6 mmol/L (22.0-26.0); ABG OXYHEMOGLOBIN 94.5 % (94.0-100.0); ABG PCO2 40 mmHg (35-45); ABG PH 7.441 (7.35-7.450); ALLEN TEST, BLOOD GAS Positive; IPAP, BG 16 cm H2O; TEMPERATURE, FAHRENHEIT, BG 98.6 FAHREN (96.0-98.6)
[2017-02-17] MEDS ORDERED: MORPHINE SULFATE 2 MG/ML SYRINGE IVP ONE (10:45)
[2017-02-17] MEDS ORDERED: DILTIAZEM HCL 125 MG in DEXTROSE 5%-WATER 100 ML IV STA (13:03)
[2017-02-17] MEDS ORDERED: DILTIAZEM HCL 125 MG in DEXTROSE 5%-WATER 100 ML IV PRN (13:15)
[2017-02-17] MEDS ORDERED: POTASSIUM CHLORIDE 20 MEQ ER TABLET PO ONE (13:45)
[2017-02-17] MEDS ORDERED: LISINOPRIL 5 MG TABLET PO ONE (15:00)
[2017-02-17] MEDS ORDERED: DIGOXIN 250 MCG/ML 2 ML AMP IVP ONE (15:00)
[2017-02-17] MEDS ORDERED: CARVEDILOL 3.125 MG TABLET PO ONE (15:00)
[2017-02-17] MEDS ORDERED: ACETAMINOPHEN 325 MG TABLET PO PRN ×2 (15:45→21:00)
[2017-02-17] MEDS ORDERED: ONDANSETRON HCL 4 MG/2 ML VIAL IVP PRN ×2 (15:45→21:00)
[2017-02-17] MEDS ORDERED: 0.9% SODIUM CHLORIDE 10 ML SYRINGE IVP PRN (15:45)
[2017-02-17] MEDS ORDERED: BISACODYL 10 MG RECTAL RECTAL SUPPOSITORY PR PRN (21:00)
[2017-02-17] MEDS: DOCUSATE SODIUM 100 MG CAPSULE PO SCH (21:00)
[2017-02-17] MEDS ORDERED: MAGNESIUM HYDROXIDE SUSPENSION 30 ML UDCUP PO PRN (21:00)
[2017-02-17] MEDS: DIVALPROEX SODIUM 500 MG ER TABLET PO SCH (21:54)
[2017-02-17] MEDS: FUROSEMIDE 40 MG/4 ML VIAL IVP SCH (21:54)
[2017-02-17] MEDS: MORPHINE SULFATE 2 MG/ML SYRINGE IVP PRN (21:54)
[2017-02-17 22:47] VITALS: BP 126/65
[2017-02-17] MEDS: HYDROCODONE/ACETAMINOPHEN 5-325 MG TABLET PO PRN (23:03)
[2017-02-17] MEDS: HEPARIN SODIUM,PORCINE 5,000 UNITS/ML VIAL SQ SCH (23:03)
[2017-02-18] MEDS ORDERED: -PHARMACY VACCINE NOTE- MISC ONE ×2 (01:15)
[2017-02-18] MEDS: MORPHINE SULFATE 2 MG/ML SYRINGE IVP PRN ×4 (02:01→22:21)
[2017-02-18] MEDS: HYDROCODONE/ACETAMINOPHEN 5-325 MG TABLET PO PRN ×3 (04:22→23:48)
[2017-02-18 04:28] VITALS: BP 115/65
[2017-02-18] MEDS: LEVOTHYROXINE SODIUM 25 MCG TABLET PO SCH (06:02)
[2017-02-18 06:23] LABS: ALANINE AMINOTRANSFERASE 38 U/L (12-78); ALBUMIN 2.8 g/dL (3.4-5.0); ANION GAP 6 mmol/L (8-16); ASPARTATE AMINOTRANSFERASE 13 U/L (15-37); BILIRUBIN,TOTAL 0.4 mg/dL (0.1-1.0); CALCIUM, TOTAL 8.4 mg/dL (8.8-10.5); CARBON DIOXIDE 28 mmol/L (22-29); CHLORIDE 105 mmol/L (98-107); CREATININE 0.91 mg/dL (0.60-1.30); GLOMERULAR FILTR. RATE CALC > 60 mL/min (>60); POTASSIUM 3.8 mmol/L (3.5-5.1); SODIUM SERUM 139 mmol/L (136-145); TOTAL PROTEIN, SERUM 6.1 g/dL (6.4-8.2); UREA NITROGEN, BLOOD 13 mg/dL (7-18)
[2017-02-18 06:36] LABS: BASOPHILS # (AUTO) 0.02 K/uL (0.00-0.20); BASOPHILS % (AUTO) 0.6 % (0.0-2.0); EOSINOPHILS # (AUTO) 0.11 K/uL (0.00-0.70); EOSINOPHILS % (AUTO) 2.65 % (1.0-6.0); HEMATOCRIT 29.3 % (36-46); HEMOGLOBIN 9.3 g/dL (12.0-16.0); LYMPHOCYTES # (AUTO) 1.3 K/uL (1.0-4.8); LYMPHOCYTES % (AUTO) 30.2 % (22.0-44.0); MEAN CORPUSCULAR HEMOGLOBIN 26.5 pg (26.0-34.0); MEAN CORPUSCULAR HGB CONC 31.8 G/dL (31.0-37.0); MEAN CORPUSCULAR VOLUME 83 fL (80-100); MONOCYTES # (AUTO) 0.4 K/uL (0.1-1.0); NEUTROPHILS # (AUTO) 2.4 K/uL (1.8-7.7); NEUTROPHILS % (AUTO) 56.6 % (40.0-70.0); PLATELET COUNT (AUTO) 264 K/uL (150-450); RED BLOOD CELL COUNT(AUTO) 3.51 MIL/uL (4.00-5.20); RED CELL DISTRIBUTION WIDTH 20.7 % (11.5-14.5); WHITE BLOOD COUNT (AUTO) 4.2 K/uL (4.5-11.0)
[2017-02-18 08:15] VITALS: BP 102/65
[2017-02-18] MEDS: HEPARIN SODIUM,PORCINE 5,000 UNITS/ML VIAL SQ SCH ×3 (08:47→23:47)
[2017-02-18] MEDS: FUROSEMIDE 40 MG/4 ML VIAL IVP SCH ×2 (08:47→21:00)
[2017-02-18] MEDS: LISINOPRIL 5 MG TABLET PO SCH (08:48)
[2017-02-18] MEDS: PANTOPRAZOLE SODIUM 40 MG DR TABLET PO SCH (08:48)
[2017-02-18] MEDS: DOCUSATE SODIUM 100 MG CAPSULE PO SCH ×2 (08:48→21:01)
[2017-02-18] MEDS ORDERED: ASPIRIN 81 MG CHEWABLE TABLET PO SCH (09:00)
[2017-02-18 09:47] LABS: RBC MORPHOLOGY COMMENT ABNORMAL RBC MORPH
[2017-02-18] MEDS: METOPROLOL TARTRATE 25 MG TABLET PO SCH ×2 (10:17→21:01)
[2017-02-18 11:53] VITALS: BP 103/63
[2017-02-18 15:03] VITALS: BP 129/77
[2017-02-18] MEDS ORDERED: DEXTROSE 50%-WATER 25 GM/50 ML SYRINGE IVP PRN (15:30)
[2017-02-18] MEDS: RIVAROXABAN 15 MG TABLET PO SCH (18:20)
[2017-02-18] MEDS: MetFORMIN HCL 500 MG TABLET PO SCH (18:20)
[2017-02-18 19:38] VITALS: BP 131/77
[2017-02-18] MEDS: MethylPREDNISolone SOD SUCC 40 MG/ML VIAL IVP SCH ×2 (21:01→23:47)
[2017-02-18] MEDS: DIVALPROEX SODIUM 500 MG ER TABLET PO SCH (21:01)
[2017-02-18 21:37] LABS: GLUCOSE,POINT OF CARE 126 MG/DL (70-110)
[2017-02-18 22:07] LABS: GLUCOSE,POINT OF CARE 124 MG/DL (70-110)
[2017-02-18 22:07] LABS: GLUCOSE,POINT OF CARE 96 MG/DL (70-110)
[2017-02-19] VITALS (7 sets, daily range): BP systolic 111–149; BP diastolic 65–83
[2017-02-19] MEDS: MORPHINE SULFATE 2 MG/ML SYRINGE IVP PRN ×2 (03:43→15:26)
[2017-02-19] MEDS: LEVOTHYROXINE SODIUM 25 MCG TABLET PO SCH (05:48)
[2017-02-19] MEDS: MethylPREDNISolone SOD SUCC 40 MG/ML VIAL IVP SCH ×4 (05:49→23:25)
[2017-02-19] MEDS: HYDROCODONE/ACETAMINOPHEN 5-325 MG TABLET PO PRN ×2 (05:49→17:24)
[2017-02-19] MEDS: INSULIN ASPART 100 UNITS/ML SQ PRN ×2 (05:51→18:31)
[2017-02-19 06:48] LABS: EOSINOPHILS % (AUTO) 0.1 % (1.0-6.0); HEMATOCRIT 35.3 % (36-46); HEMOGLOBIN 11.2 g/dL (12.0-16.0); LYMPHOCYTES # (AUTO) 0.5 K/uL (1.0-4.8); LYMPHOCYTES % (AUTO) 12.5 % (22.0-44.0); MEAN CORPUSCULAR HEMOGLOBIN 26.6 pg (26.0-34.0); MEAN CORPUSCULAR HGB CONC 31.9 G/dL (31.0-37.0); MEAN CORPUSCULAR VOLUME 83 fL (80-100); MONOCYTES # (AUTO) 0.1 K/uL (0.1-1.0); MONOCYTES % (AUTO) 1.6 % (2.0-9.0); NEUTROPHILS # (AUTO) 3.2 K/uL (1.8-7.7); PLATELET COUNT (AUTO) 338 K/uL (150-450); RED BLOOD CELL COUNT(AUTO) 4.23 MIL/uL (4.00-5.20); RED CELL DISTRIBUTION WIDTH 21.2 % (11.5-14.5); WHITE BLOOD COUNT (AUTO) 3.7 K/uL (4.5-11.0)
[2017-02-19 07:20] LABS: NEUTROPHILS % (AUTO) 85.8 % (40.0-70.0)
[2017-02-19 07:37] LABS: ALANINE AMINOTRANSFERASE 34 U/L (12-78); ALBUMIN 3.1 g/dL (3.4-5.0); ANION GAP 12 mmol/L (8-16); ASPARTATE AMINOTRANSFERASE 10 U/L (15-37); BILIRUBIN,TOTAL 0.3 mg/dL (0.1-1.0); CARBON DIOXIDE 25 mmol/L (22-29); CHLORIDE 100 mmol/L (98-107); CREATININE 1.06 mg/dL (0.60-1.30); GLOMERULAR FILTR. RATE CALC > 60 mL/min (>60); POTASSIUM 4.3 mmol/L (3.5-5.1); SODIUM SERUM 137 mmol/L (136-145); TOTAL PROTEIN, SERUM 6.9 g/dL (6.4-8.2); UREA NITROGEN, BLOOD 12 mg/dL (7-18)
[2017-02-19] MEDS: LISINOPRIL 5 MG TABLET PO SCH (07:55)
[2017-02-19] MEDS: MetFORMIN HCL 500 MG TABLET PO SCH ×2 (07:55→17:22)
[2017-02-19] MEDS: PANTOPRAZOLE SODIUM 40 MG DR TABLET PO SCH (07:55)
[2017-02-19] MEDS: METOPROLOL TARTRATE 25 MG TABLET PO SCH ×2 (07:55→20:30)
[2017-02-19] MEDS: HEPARIN SODIUM,PORCINE 5,000 UNITS/ML VIAL SQ SCH ×3 (07:56→23:27)
[2017-02-19] MEDS: FUROSEMIDE 40 MG/4 ML VIAL IVP SCH (07:56)
[2017-02-19] MEDS: DOCUSATE SODIUM 100 MG CAPSULE PO SCH ×3 (07:56→21:00)
[2017-02-19 08:27] LABS: GLUCOSE COMMENT 1 Received Meds; GLUCOSE,POINT OF CARE 220 MG/DL (70-110)
[2017-02-19] MEDS: BUDESONIDE 0.5 MG/2 ML NEB SOLUTION NEB SCH ×2 (08:40→19:44)
[2017-02-19] MEDS ORDERED: METOPROLOL TARTRATE 50 MG TABLET PO ONE (10:00)
[2017-02-19] MEDS ORDERED: DIGOXIN 250 MCG/ML 2 ML AMP IVP ONE ×2 (14:30→18:30)
[2017-02-19] MEDS: RIVAROXABAN 15 MG TABLET PO SCH (17:22)
[2017-02-19 18:32] LABS: GLUCOSE,POINT OF CARE 171 MG/DL (70-110)
[2017-02-19 18:32] LABS: GLUCOSE,POINT OF CARE 138 MG/DL (70-110)
[2017-02-19] MEDS: ZOLPIDEM TARTRATE 5 MG TABLET PO PRN (20:30)
[2017-02-19] MEDS: DIVALPROEX SODIUM 500 MG ER TABLET PO SCH (20:31)
[2017-02-19] MEDS ORDERED: METOPROLOL TARTRATE 25 MG TABLET PO SCH (21:00)
[2017-02-19 21:07] LABS: GLUCOSE,POINT OF CARE 136 MG/DL (70-110)
[2017-02-20] MEDS: HYDROCODONE/ACETAMINOPHEN 5-325 MG TABLET PO PRN ×3 (02:42→16:36)
[2017-02-20 04:12] VITALS: BP 123/75
[2017-02-20] MEDS: MethylPREDNISolone SOD SUCC 40 MG/ML VIAL IVP SCH (06:18)
[2017-02-20] MEDS: LEVOTHYROXINE SODIUM 25 MCG TABLET PO SCH (06:18)
[2017-02-20] MEDS: INSULIN ASPART 100 UNITS/ML SQ PRN ×3 (06:21→18:07)
[2017-02-20 07:09] VITALS: BP 126/76
[2017-02-20 07:29] LABS: BASOPHILS # (AUTO) 0.08 K/uL (0.00-0.20); BASOPHILS % (AUTO) 1.5 % (0.0-2.0); EOSINOPHILS % (AUTO) 0.03 % (1.0-6.0); HEMATOCRIT 34.9 % (36-46); HEMOGLOBIN 11.1 g/dL (12.0-16.0); LYMPHOCYTES # (AUTO) 0.6 K/uL (1.0-4.8); LYMPHOCYTES % (AUTO) 11.3 % (22.0-44.0); MEAN CORPUSCULAR HEMOGLOBIN 26.7 pg (26.0-34.0); MEAN CORPUSCULAR HGB CONC 31.9 G/dL (31.0-37.0); MEAN CORPUSCULAR VOLUME 84 fL (80-100); MONOCYTES # (AUTO) 0.4 K/uL (0.1-1.0); MONOCYTES % (AUTO) 6.9 % (2.0-9.0); NEUTROPHILS # (AUTO) 4.4 K/uL (1.8-7.7); NEUTROPHILS % (AUTO) 80.2 % (40.0-70.0); PLATELET COUNT (AUTO) 357 K/uL (150-450); RED BLOOD CELL COUNT(AUTO) 4.17 MIL/uL (4.00-5.20); RED CELL DISTRIBUTION WIDTH 21.1 % (11.5-14.5); WHITE BLOOD COUNT (AUTO) 5.5 K/uL (4.5-11.0)
[2017-02-20 07:58] LABS: ALANINE AMINOTRANSFERASE 26 U/L (12-78); ANION GAP 8 mmol/L (8-16); ASPARTATE AMINOTRANSFERASE 7 U/L (15-37); BILIRUBIN,TOTAL 0.5 mg/dL (0.1-1.0); CALCIUM, TOTAL 8.8 mg/dL (8.8-10.5); CARBON DIOXIDE 28 mmol/L (22-29); CHLORIDE 99 mmol/L (98-107); CREATININE 0.89 mg/dL (0.60-1.30); DIGOXIN 0.78 ng/mL (0.90-2.00); GLOMERULAR FILTR. RATE CALC > 60 mL/min (>60); POTASSIUM 3.6 mmol/L (3.5-5.1); SODIUM SERUM 135 mmol/L (136-145); TOTAL PROTEIN, SERUM 6.7 g/dL (6.4-8.2); UREA NITROGEN, BLOOD 17 mg/dL (7-18)
[2017-02-20] MEDS: MetFORMIN HCL 500 MG TABLET PO SCH ×2 (08:06→16:36)
[2017-02-20] MEDS: PredniSONE 20 MG TABLET PO SCH (08:06)
[2017-02-20] MEDS: DOCUSATE SODIUM 100 MG CAPSULE PO SCH ×2 (08:06→21:00)
[2017-02-20] MEDS: PANTOPRAZOLE SODIUM 40 MG DR TABLET PO SCH (08:06)
[2017-02-20] MEDS: METOPROLOL TARTRATE 25 MG TABLET PO SCH ×2 (08:07→21:01)
[2017-02-20] MEDS: HEPARIN SODIUM,PORCINE 5,000 UNITS/ML VIAL SQ SCH ×2 (08:07→16:37)
[2017-02-20] MEDS: BUDESONIDE 0.5 MG/2 ML NEB SOLUTION NEB SCH ×2 (08:34→21:18)
[2017-02-20 08:57] LABS: GLUCOSE,POINT OF CARE 152 MG/DL (70-110)
[2017-02-20 10:22] LABS: RBC MORPHOLOGY COMMENT DIMORPHIC RBC
[2017-02-20] MEDS: MORPHINE SULFATE 2 MG/ML SYRINGE IVP PRN (11:34)
[2017-02-20 11:57] VITALS: BP 135/89
[2017-02-20 15:48] VITALS: BP 138/69
[2017-02-20] MEDS: RIVAROXABAN 15 MG TABLET PO SCH (16:37)
[2017-02-20 18:07] LABS: GLUCOSE COMMENT 1 Received Meds; GLUCOSE,POINT OF CARE 164 MG/DL (70-110)
[2017-02-20 18:07] LABS: GLUCOSE COMMENT 1 Received Meds; GLUCOSE,POINT OF CARE 160 MG/DL (70-110)
[2017-02-20 20:00] VITALS: BP 112/68
[2017-02-20] MEDS: DIVALPROEX SODIUM 500 MG ER TABLET PO SCH (21:00)
[2017-02-20] MEDS: ZOLPIDEM TARTRATE 5 MG TABLET PO PRN (21:05)
[2017-02-20 21:47] LABS: GLUCOSE,POINT OF CARE 140 MG/DL (70-110)
[2017-02-21 00:05] VITALS: BP 124/75
[2017-02-21] MEDS: HEPARIN SODIUM,PORCINE 5,000 UNITS/ML VIAL SQ SCH ×2 (00:52→08:00)
[2017-02-21 05:13] VITALS: BP 144/86
[2017-02-21] MEDS: MORPHINE SULFATE 2 MG/ML SYRINGE IVP PRN (05:20)
[2017-02-21] MEDS: LEVOTHYROXINE SODIUM 25 MCG TABLET PO SCH (05:30)
[2017-02-21 06:47] LABS: GLUCOSE,POINT OF CARE 105 MG/DL (70-110)
[2017-02-21 07:15] VITALS: BP 128/58
[2017-02-21 07:23] LABS: EOSINOPHILS % (AUTO) 0.2 % (1.0-6.0); HEMATOCRIT 35.6 % (36-46); HEMOGLOBIN 11.5 g/dL (12.0-16.0); LYMPHOCYTES # (AUTO) 1.1 K/uL (1.0-4.8); LYMPHOCYTES % (AUTO) 19.9 % (22.0-44.0); MEAN CORPUSCULAR HEMOGLOBIN 26.6 pg (26.0-34.0); MEAN CORPUSCULAR HGB CONC 32.3 G/dL (31.0-37.0); MEAN CORPUSCULAR VOLUME 82 fL (80-100); MONOCYTES # (AUTO) 0.6 K/uL (0.1-1.0); MONOCYTES % (AUTO) 10.4 % (2.0-9.0); NEUTROPHILS % (AUTO) 69.5 % (40.0-70.0); PLATELET COUNT (AUTO) 332 K/uL (150-450); RED BLOOD CELL COUNT(AUTO) 4.33 MIL/uL (4.00-5.20); RED CELL DISTRIBUTION WIDTH 21.8 % (11.5-14.5); WHITE BLOOD COUNT (AUTO) 5.8 K/uL (4.5-11.0)
[2017-02-21 07:36] LABS: ALANINE AMINOTRANSFERASE 23 U/L (12-78); ALBUMIN 2.9 g/dL (3.4-5.0); ANION GAP 8 mmol/L (8-16); ASPARTATE AMINOTRANSFERASE 6 U/L (15-37); BILIRUBIN,TOTAL 0.4 mg/dL (0.1-1.0); CALCIUM, TOTAL 8.6 mg/dL (8.8-10.5); CARBON DIOXIDE 29 mmol/L (22-29); CHLORIDE 103 mmol/L (98-107); CREATININE 0.91 mg/dL (0.60-1.30); GLOMERULAR FILTR. RATE CALC > 60 mL/min (>60); POTASSIUM 3.6 mmol/L (3.5-5.1); SODIUM SERUM 140 mmol/L (136-145); TOTAL PROTEIN, SERUM 6.3 g/dL (6.4-8.2); UREA NITROGEN, BLOOD 18 mg/dL (7-18)
[2017-02-21] MEDS: BUDESONIDE 0.5 MG/2 ML NEB SOLUTION NEB SCH (08:15)
[2017-02-21] MEDS: PredniSONE 20 MG TABLET PO SCH (08:42)
[2017-02-21] MEDS: PANTOPRAZOLE SODIUM 40 MG DR TABLET PO SCH (08:42)
[2017-02-21] MEDS: MetFORMIN HCL 500 MG TABLET PO SCH (08:43)
[2017-02-21] MEDS: DOCUSATE SODIUM 100 MG CAPSULE PO SCH (08:43)
[2017-02-21] MEDS ORDERED: METOPROLOL TARTRATE 50 MG TABLET PO SCH (09:00)
[2017-02-21 09:13] LABS: RBC MORPHOLOGY COMMENT ABNORMAL RBC MORPH
[2017-02-21] MEDS: HYDROCODONE/ACETAMINOPHEN 5-325 MG TABLET PO PRN (11:19)
[2017-02-21 11:30] VITALS: BP 155/70
[2017-02-22 02:07] LABS: GLUCOSE COMMENT 1 Received Meds; GLUCOSE,POINT OF CARE 133 MG/DL (70-110)
== END 2017-02-21 15:00 | disposition home or self-care (01) | DRG 133 ==
LOC: EMS 08:45 → 5S 22:09
PROVIDERS: ADMIT Internal Medicine; ATTEND Internal Medicine
PROC: 5A09357 Assistance with Respiratory Ventilation, Less than 24 Consecutive Hours, Continuous Positive Airway Pressure (ICD-10-PCS; principal; 2017-02-17)
DX: J96.01 Acute respiratory failure with hypoxia (principal); I50.33 Acute on chronic diastolic (congestive) heart failure; E55.9 Vitamin D deficiency, unspecified; J44.1 Chronic obstructive pulmonary disease with (acute) exacerbation; E66.01 Morbid (severe) obesity due to excess calories; I48.91 Unspecified atrial fibrillation; E11.9 Type 2 diabetes mellitus without complications; D64.9 Anemia, unspecified; I11.0 Hypertensive heart disease with heart failure; E03.9 Hypothyroidism, unspecified; J45.909 Unspecified asthma, uncomplicated; E78.00 Pure hypercholesterolemia, unspecified; F20.9 Schizophrenia, unspecified; G47.33 Obstructive sleep apnea (adult) (pediatric); F17.210 Nicotine dependence, cigarettes, uncomplicated; Z91.19 Patient's noncompliance with other medical treatment and regimen; Z79.899 Other long term (current) drug therapy; Z79.891 Long term (current) use of opiate analgesic; Z79.82 Long term (current) use of aspirin; Z68.35 Body mass index [BMI] 35.0-35.9, adult; Z90.49 Acquired absence of other specified parts of digestive tract
CPT/HCPCS: 51702; 82805; 82962; 83735; 93005; 93306; 94640; 94660; 96365; 96366; 96374; 96375; 99291; J1160; J1644; J1940; J2270; J2920; J3490; J7060

== ENCOUNTER 2017-06-12 05:15 | Emergency (ER) | payer OTHER ==
[~2017-06-12 05:15] MED LIST changes: -HYDR-3965 PO; +HYDR-4061 PO
== END 2017-06-12 05:45 | disposition left against medical advice (07) ==
LOC: EMS 05:17
DX: F20.9 Schizophrenia, unspecified (principal); M79.604 Pain in right leg; M79.605 Pain in left leg; F17.210 Nicotine dependence, cigarettes, uncomplicated; I11.0 Hypertensive heart disease with heart failure; I50.9 Heart failure, unspecified; I48.91 Unspecified atrial fibrillation; E78.00 Pure hypercholesterolemia, unspecified
CPT/HCPCS: 99284; 99406

== ENCOUNTER 2017-08-31 00:59 | Emergency (ER) | payer OTHER ==
[~2017-08-31] VITALS: Ht 172.7 cm; Wt 102.7 kg
[2017-08-31 01:07] VITALS: BP 138/77
== END 2017-08-31 01:32 | disposition left against medical advice (07) ==
LOC: EMS 01:01
DX: R00.2 Palpitations (principal); I48.91 Unspecified atrial fibrillation; I11.0 Hypertensive heart disease with heart failure; I50.9 Heart failure, unspecified; E78.00 Pure hypercholesterolemia, unspecified; F17.210 Nicotine dependence, cigarettes, uncomplicated; Z88.8 Allergy status to other drugs, medicaments and biological substances
CPT/HCPCS: 99283

== ENCOUNTER 2017-09-24 01:00 | Emergency (ER) | payer OTHER | END 2017-09-24 01:42 | disposition left against medical advice (07) | LOC: EMS 01:02 | DX: R00.2 Palpitations (principal); I48.91 Unspecified atrial fibrillation; F41.9 Anxiety disorder, unspecified; F25.9 Schizoaffective disorder, unspecified; I11.0 Hypertensive heart disease with heart failure; I50.9 Heart failure, unspecified; E78.00 Pure hypercholesterolemia, unspecified; F17.210 Nicotine dependence, cigarettes, uncomplicated; Z88.6 Allergy status to analgesic agent; Z88.8 Allergy status to other drugs, medicaments and biological substances; Z79.82 Long term (current) use of aspirin | CPT/HCPCS: 99283 ==

== ENCOUNTER 2017-12-10 09:53 | Inpatient (IN) | payer OTHER ==
[~2017-12-10] VITALS: Ht 172.7 cm; Wt 91.0 kg
[2017-12-10 11:04] LABS: BASOPHILS % (AUTO) 0.9 % (0.0-2.0); EOSINOPHILS % (AUTO) 0.3 % (1.0-6.0); HEMATOCRIT 40.3 % (36-46); HEMOGLOBIN 13.1 g/dL (12.0-16.0); LYMPHOCYTES # (AUTO) 0.5 K/uL (1.0-4.8); LYMPHOCYTES % (AUTO) 7.1 % (22.0-44.0); MEAN CORPUSCULAR HEMOGLOBIN 28.9 pg (26.0-34.0); MEAN CORPUSCULAR HGB CONC 32.6 G/dL (31.0-37.0); MEAN CORPUSCULAR VOLUME 89 fL (80-100); MONOCYTES # (AUTO) 0.4 K/uL (0.1-1.0); MONOCYTES % (AUTO) 6.4 % (2.0-9.0); NEUTROPHILS # (AUTO) 5.5 K/uL (1.8-7.7); PLATELET COUNT (AUTO) 234 K/uL (150-450); RED BLOOD CELL COUNT(AUTO) 4.55 MIL/uL (4.00-5.20); RED CELL DISTRIBUTION WIDTH 18.7 % (11.5-14.5)
[2017-12-10 11:10] LABS: NEUTROPHILS % (AUTO) 85.3 % (40.0-70.0)
[2017-12-10 11:13] LABS: SALICYLATE 14.7 mg/dL (2.8-20.0)
[2017-12-10 11:17] LABS: ANION GAP 11 mmol/L (8-16); CALCIUM, TOTAL 9.3 mg/dL (8.8-10.5); CARBON DIOXIDE 26 mmol/L (22-29); CHLORIDE 105 mmol/L (98-107); GLOMERULAR FILTR. RATE CALC 56 mL/min (>60); GLUCOSE,RANDOM 136 mg/dL (70-110); INR 1.2 (0.9-1.1); POTASSIUM 3.3 mmol/L (3.5-5.1); PROTHROMBIN TIME 12.4 SEC (9.4-11.6); SODIUM SERUM 142 mmol/L (136-145); UREA NITROGEN, BLOOD 30 mg/dL (7-18)
[2017-12-10 11:22] LABS: AMMONIA 21 umol/L (11-32)
[2017-12-10] MEDS ORDERED: LORazepam 2 MG/ML VIAL ONE (11:22)
[2017-12-10] MEDS ORDERED: HALOPERIDOL LACTATE 5 MG/ML VIAL ONE (11:23)
[2017-12-10 11:26] LABS: TROPONIN I < 0.02 ng/mL (0.00-0.05)
[2017-12-10] MEDS ORDERED: HALOPERIDOL LACTATE 5 MG/ML VIAL IM ONE ×2 (11:30→12:00)
[2017-12-10] MEDS ORDERED: LORazepam 2 MG/ML VIAL IM ONE (11:30)
[2017-12-10 11:36] LABS: AMPHET/METH SCREEN,URINE NEGATIVE (NEGATIVE); BARBITURATE SCREEN, URINE NEGATIVE (NEGATIVE); BENZODIAZEPINES SCREEN,URINE NEGATIVE (NEGATIVE); CANNABINOID SCREEN,URINE POSITIVE (NEGATIVE); COCAINE SCREEN,URINE NEGATIVE (NEGATIVE); METHADONE SCREEN, URINE NEGATIVE (NEGATIVE); OPIATE SCREEN,URINE POSITIVE (NEGATIVE)
[2017-12-10 11:38] LABS: APPEARANCE,URINE CLEAR (CLEAR); BILIRUBIN,URINE NEGATIVE (NEGATIVE); GLUCOSE, URINE (UA) NEGATIVE (NEGATIVE); KETONES,URINE NEGATIVE (NEGATIVE); LEUKOCYTE ESTERASE ,URINE NEGATIVE (NEGATIVE); NITRATE,URINE NEGATIVE (NEGATIVE); OCCULT BLOOD,URINE NEGATIVE (NEGATIVE); PH,URINE 5.5 (5.0-8.0); PROTEIN,URINE NEGATIVE (NEGATIVE); UROBILINOGEN,URINE 0.2 mg/dL (<=1.0)
[2017-12-10 11:39] LABS: PHENCYCLIDINE SCREEN,URINE NEGATIVE (NEGATIVE)
[2017-12-10 11:42] LABS: ALANINE AMINOTRANSFERASE 41 U/L (12-78); ALBUMIN 3.3 g/dL (3.4-5.0); ALKALINE PHOSPHATASE 100 U/L (46-116); ASPARTATE AMINOTRANSFERASE 22 U/L (15-37); BILIRUBIN,TOTAL 0.4 mg/dL (0.1-1.0); CREATINE KINASE MB 4.8 ng/mL (0-5); CREATINE KINASE, TOTAL 254 U/L (26-192); TOTAL PROTEIN, SERUM 7.1 g/dL (6.4-8.2)
[2017-12-10 11:43] LABS: ACETAMINOPHEN < 2 mcg/mL (10-30)
[2017-12-10] MEDS ORDERED: DiphenhydrAMINE HCL 50 MG/ML VIAL IM ONE (12:00)
[2017-12-10] MEDS ORDERED: LIDOCAINE HCL 1% 10 ML VIAL ONE (12:53)
[2017-12-10] MEDS ORDERED: MIDAZOLAM HCL 5 MG/ML VIAL ONE (13:03)
[2017-12-10] MEDS ORDERED: MIDAZOLAM HCL 2 MG/2 ML VIAL IVP ONE (13:10)
[2017-12-10] MEDS ORDERED: SODIUM CHLORIDE 0.9% 2,000 ML IV ONE (14:00)
[2017-12-10 14:26] LABS: LACTIC ACID 1.5 mmol/L (0.4-2.0)
[2017-12-10 14:29] LABS: SALICYLATE 11.7 mg/dL (2.8-20.0)
[2017-12-10] MEDS ORDERED: METOPROLOL TARTRATE 5 MG/5 ML VIAL IVP ONE (14:30)
[2017-12-10] MEDS ORDERED: DIGOXIN 250 MCG/ML 2 ML AMP IVP ONE (14:30)
[2017-12-10] MEDS ORDERED: CALCIUM GLUCONATE 100 MG/ML 10 ML IVP ONE (14:30)
[2017-12-10 14:42] LABS: CKMB RELATIVE INDEX 1.4 % (0.0-4.0); CREATINE KINASE MB 5.3 ng/mL (0-5)
[2017-12-10] MEDS ORDERED: ONDANSETRON HCL 4 MG/2 ML VIAL IVP PRN (15:30)
[2017-12-10] MEDS ORDERED: ALBUTEROL SULFATE 2.5 MG/0.5 ML NEB SOLUTION NEB PRN (15:30)
[2017-12-10] MEDS ORDERED: MAGNESIUM HYDROXIDE SUSPENSION 30 ML UDCUP PO PRN (15:30)
[2017-12-10] MEDS: HEPARIN SODIUM,PORCINE 5,000 UNITS/ML VIAL SQ SCH (15:50)
[2017-12-10 17:00] VITALS: BP 126/76
[2017-12-10] MEDS ORDERED: POTASSIUM CHLORIDE 20 MEQ ER TABLET PO PRN ×2 (17:30)
[2017-12-10] MEDS: POTASSIUM CHL 10 MEQ/WATER 50 ML IV PRN ×4 (18:04→21:48)
[2017-12-10] MEDS: DOCUSATE SODIUM 100 MG CAPSULE PO SCH ×2 (19:54→21:00)
[2017-12-10] MEDS: LORazepam 2 MG/ML VIAL IM PRN (19:55)
[2017-12-10] MEDS: HALOPERIDOL LACTATE 5 MG/ML VIAL IM PRN (19:56)
[2017-12-10 20:37] VITALS: BP 151/69
[2017-12-11] VITALS: BP 145/75
[2017-12-11] MEDS: LORazepam 2 MG/ML VIAL IM PRN ×4 (00:23→20:17)
[2017-12-11] MEDS: HEPARIN SODIUM,PORCINE 5,000 UNITS/ML VIAL SQ SCH ×3 (00:31→17:45)
[2017-12-11] MEDS ORDERED: DIGOXIN 250 MCG/ML 2 ML AMP IVP ONE (01:15)
[2017-12-11 04:01] VITALS: BP 125/70
[2017-12-11] MEDS: HALOPERIDOL LACTATE 5 MG/ML VIAL IM PRN ×2 (04:14→13:50)
[2017-12-11 07:44] VITALS: BP 160/95
[2017-12-11] MEDS: DOCUSATE SODIUM 100 MG CAPSULE PO SCH ×2 (07:54→20:27)
[2017-12-11] MEDS: DIGOXIN 125 MCG TABLET PO SCH (07:54)
[2017-12-11] MEDS ORDERED: PANTOPRAZOLE SODIUM 40 MG/VIAL IVP SCH (09:00)
[2017-12-11] MEDS: ASPIRIN 81 MG CHEWABLE TABLET PO SCH (11:47)
[2017-12-11 11:49] VITALS: BP 122/79
[2017-12-11 14:59] VITALS: BP 177/92
[2017-12-11] MEDS: DILTIAZEM HCL 30 MG TABLET PO SCH ×2 (17:42→20:17)
[2017-12-11 20:18] VITALS: BP 150/76
[2017-12-12] MEDS: HEPARIN SODIUM,PORCINE 5,000 UNITS/ML VIAL SQ SCH ×2 (01:56→07:29)
[2017-12-12 02:18] VITALS: BP 161/74
[2017-12-12 04:28] VITALS: BP 124/82
[2017-12-12] MEDS: LORazepam 2 MG/ML VIAL IM PRN ×2 (07:30→12:02)
[2017-12-12] MEDS: HALOPERIDOL LACTATE 5 MG/ML VIAL IM PRN (07:32)
[2017-12-12 07:56] VITALS: BP 155/88
[2017-12-12] MEDS: ASPIRIN 81 MG CHEWABLE TABLET PO SCH (08:41)
[2017-12-12] MEDS: DILTIAZEM HCL 30 MG TABLET PO SCH (08:41)
[2017-12-12] MEDS: DOCUSATE SODIUM 100 MG CAPSULE PO SCH (08:42)
[2017-12-12] MEDS: DIGOXIN 125 MCG TABLET PO SCH (08:42)
[2017-12-12] MEDS ORDERED: PANTOPRAZOLE SODIUM 40 MG DR TABLET PO SCH (09:00)
[2017-12-12 12:10] VITALS: BP 142/79
[2017-12-12] MEDS ORDERED: DILTIAZEM HCL 60 MG TABLET PO SCH (16:00)
== END 2017-12-12 15:12 | disposition left against medical advice (07) | DRG 812 ==
LOC: EMS 09:57 → 5N 16:10
PROVIDERS: ADMIT Internal Medicine; ATTEND Internal Medicine
DX: T42.8X1A Poisoning by antiparkinsonism drugs and other central muscle-tone depressants, accidental (unintentional), initial encounter (principal); G92 Toxic encephalopathy; I42.9 Cardiomyopathy, unspecified; I11.0 Hypertensive heart disease with heart failure; I50.32 Chronic diastolic (congestive) heart failure; I48.2 Chronic atrial fibrillation; J44.9 Chronic obstructive pulmonary disease, unspecified; F25.9 Schizoaffective disorder, unspecified; E78.00 Pure hypercholesterolemia, unspecified; D64.9 Anemia, unspecified; F12.90 Cannabis use, unspecified, uncomplicated; E87.6 Hypokalemia; F31.9 Bipolar disorder, unspecified; I48.92 Unspecified atrial flutter; J98.11 Atelectasis; M47.814 Spondylosis without myelopathy or radiculopathy, thoracic region; F17.210 Nicotine dependence, cigarettes, uncomplicated; Z53.21 Procedure and treatment not carried out due to patient leaving prior to being seen by health care provider; Z59.0 Homelessness; Z91.14 Patient's other noncompliance with medication regimen; Z91.19 Patient's noncompliance with other medical treatment and regimen; Z88.8 Allergy status to other drugs, medicaments and biological substances; Z79.82 Long term (current) use of aspirin; Z79.899 Other long term (current) drug therapy; Z91.83 Wandering in diseases classified elsewhere; Z86.73 Personal history of transient ischemic attack (TIA), and cerebral infarction without residual deficits; Z78.1 Physical restraint status
CPT/HCPCS: 51702; 70450; 83605; 84132; 93005; 93306; G0480; G0481; J0610; J1160; J1200; J1630; J1644; J2060; J2250; J3480; J3490

== ENCOUNTER 2018-01-09 00:37 | Emergency (ER) | payer OTHER | END 2018-01-09 01:00 | disposition left against medical advice (07) | LOC: EMS 00:39 | DX: Z53.21 Procedure and treatment not carried out due to patient leaving prior to being seen by health care provider (principal) ==

== ENCOUNTER 2018-02-03 01:59 | Emergency (ER) | payer OTHER ==
[~2018-02-03] VITALS: Ht 172.7 cm; Wt 68.2 kg
[2018-02-03 03:03] VITALS: BP 134/81
[2018-02-03] MEDS ORDERED: FUROSEMIDE 40 MG/4 ML VIAL IM ONE (03:15)
== END 2018-02-03 03:24 | disposition home or self-care (01) ==
LOC: EMS 02:00
DX: R60.0 Localized edema (principal); M79.89 Other specified soft tissue disorders; I48.91 Unspecified atrial fibrillation; I11.0 Hypertensive heart disease with heart failure; I50.9 Heart failure, unspecified; E78.00 Pure hypercholesterolemia, unspecified; F17.210 Nicotine dependence, cigarettes, uncomplicated; F13.90 Sedative, hypnotic, or anxiolytic use, unspecified, uncomplicated; Z91.19 Patient's noncompliance with other medical treatment and regimen; Z79.82 Long term (current) use of aspirin; Z88.8 Allergy status to other drugs, medicaments and biological substances
CPT/HCPCS: 96372; 99283; J1940

== ENCOUNTER 2018-04-01 03:29 | Emergency (ER) | payer OTHER ==
[~2018-04-01 03:29] MED LIST changes: -HALO5 PO; +HALO5TAB2 PO
== END 2018-04-01 03:45 | disposition left against medical advice (07) ==
LOC: EMS 03:31
DX: Z00.8 Encounter for other general examination (principal); Z53.21 Procedure and treatment not carried out due to patient leaving prior to being seen by health care provider

== ENCOUNTER 2018-04-02 20:29 | Inpatient (IN) | payer OTHER ==
[~2018-04-02] VITALS: Ht 167.6 cm; Wt 92.1 kg
[2018-04-02] MEDS ORDERED: LORazepam 2 MG/ML VIAL IVP ONE (21:00)
[2018-04-02 21:08] LABS: BASOPHILS % (AUTO) 1.4 % (0.0-2.0); EOSINOPHILS % (AUTO) 0.6 % (1.0-6.0); HEMATOCRIT 33.5 % (36-46); HEMOGLOBIN 10.8 g/dL (12.0-16.0); LYMPHOCYTES # (AUTO) 1.5 K/uL (1.0-4.8); LYMPHOCYTES % (AUTO) 28.3 % (22.0-44.0); MEAN CORPUSCULAR HEMOGLOBIN 26.6 pg (26.0-34.0); MEAN CORPUSCULAR HGB CONC 32.3 G/dL (31.0-37.0); MEAN CORPUSCULAR VOLUME 82 fL (80-100); MONOCYTES # (AUTO) 0.6 K/uL (0.1-1.0); MONOCYTES % (AUTO) 10.4 % (2.0-9.0); NEUTROPHILS # (AUTO) 3.2 K/uL (1.8-7.7); NEUTROPHILS % (AUTO) 59.3 % (40.0-70.0); PLATELET COUNT (AUTO) 373 K/uL (150-450); RED BLOOD CELL COUNT(AUTO) 4.08 MIL/uL (4.00-5.20)
[2018-04-02 21:17] LABS: ANION GAP 14 mmol/L (8-16); CALCIUM, TOTAL 9.1 mg/dL (8.8-10.5); CARBON DIOXIDE 23 mmol/L (22-29); CHLORIDE 107 mmol/L (98-107); CREATININE 1.53 mg/dL (0.60-1.30); GLOMERULAR FILTR. RATE CALC 42 mL/min (>60); GLUCOSE,RANDOM 138 mg/dL (70-110); POTASSIUM 3.5 mmol/L (3.5-5.1); SODIUM SERUM 144 mmol/L (136-145); UREA NITROGEN, BLOOD 21 mg/dL (7-18)
[2018-04-02 21:20] LABS: INR 1.4 (0.9-1.1); PROTHROMBIN TIME 14.8 SEC (9.4-11.6)
[2018-04-02 21:28] LABS: B-TYPE NATRIURETIC PEPTIDE 884 pg/mL (0-100)
[2018-04-02 21:42] LABS: ALANINE AMINOTRANSFERASE 29 U/L (12-78); ALBUMIN 3.7 g/dL (3.4-5.0); ALKALINE PHOSPHATASE 96 U/L (46-116); ASPARTATE AMINOTRANSFERASE 36 U/L (15-37); BILIRUBIN,TOTAL 0.4 mg/dL (0.1-1.0); CKMB RELATIVE INDEX 0.5 % (0.0-4.0); CREATINE KINASE MB 5.1 ng/mL (0-5); CREATINE KINASE, TOTAL 944 U/L (26-192); TOTAL PROTEIN, SERUM 7.2 g/dL (6.4-8.2)
[2018-04-02 21:48] LABS: THYROID STIMULATING HORMONE 2.65 uIU/mL (0.36-3.74); VALPROIC ACID 3 mcg/mL (50-100)
[2018-04-02] MEDS ORDERED: FUROSEMIDE 40 MG/4 ML VIAL IVP ONE (22:15)
[2018-04-02 22:47] LABS: APPEARANCE,URINE CLOUDY (CLEAR); GLUCOSE, URINE (UA) NEGATIVE (NEGATIVE); KETONES,URINE NEGATIVE (NEGATIVE); LEUKOCYTE ESTERASE ,URINE NEGATIVE (NEGATIVE); NITRATE,URINE NEGATIVE (NEGATIVE); OCCULT BLOOD,URINE SMALL (NEGATIVE); PROTEIN,URINE TRACE (NEGATIVE)
[2018-04-02 22:48] LABS: BILIRUBIN,URINE PRELIM. POSITIVE (NEGATIVE)
[2018-04-02 22:52] LABS: AMPHET/METH SCREEN,URINE NEGATIVE (NEGATIVE); BARBITURATE SCREEN, URINE NEGATIVE (NEGATIVE); BENZODIAZEPINES SCREEN,URINE NEGATIVE (NEGATIVE); CANNABINOID SCREEN,URINE POSITIVE (NEGATIVE); COCAINE SCREEN,URINE NEGATIVE (NEGATIVE); METHADONE SCREEN, URINE NEGATIVE (NEGATIVE); OPIATE SCREEN,URINE NEGATIVE (NEGATIVE)
[2018-04-02 22:53] LABS: PHENCYCLIDINE SCREEN,URINE NEGATIVE (NEGATIVE)
[2018-04-02 22:54] LABS: BACTERIA,URINE Few /HPF (None Seen)
[2018-04-02 22:55] LABS: SQUAMOUS EPITHELIAL CELL,UR Few /LPF (None Seen)
[2018-04-02 22:57] LABS: HYALINE CASTS, URINE 0-2 /LPF (None Seen)
[2018-04-02] MEDS ORDERED: DILTIAZEM HCL 5 MG/ML 5 ML VIAL IVP ONE (23:00)
[2018-04-02] MEDS ORDERED: DILTIAZEM HCL 125 MG in DEXTROSE 5%-WATER 100 ML IV PRN (23:30)
[2018-04-02] MEDS ORDERED: ONDANSETRON HCL 4 MG/2 ML VIAL IVP PRN (23:45)
[2018-04-02] MEDS ORDERED: HEPARIN SODIUM,PORCINE 5,000 UNITS/ML VIAL IVP PRN ×2 (23:45)
[2018-04-02] MEDS ORDERED: ZOLPIDEM TARTRATE 5 MG TABLET PO PRN (23:45)
[2018-04-02] MEDS ORDERED: MAGNESIUM HYDROXIDE SUSPENSION 30 ML UDCUP PO PRN (23:45)
[2018-04-02] MEDS ORDERED: MORPHINE SULFATE 2 MG/ML SYRINGE IVP PRN (23:45)
[2018-04-02] MEDS ORDERED: ACETAMINOPHEN 325 MG TABLET PO PRN (23:45)
[2018-04-02] MEDS ORDERED: DIGOXIN 250 MCG/ML 2 ML AMP IVP ONE (23:45)
[2018-04-02] MEDS ORDERED: BISACODYL 10 MG RECTAL RECTAL SUPPOSITORY PR PRN (23:45)
[2018-04-03] VITALS (8 sets, daily range): BP systolic 115–144; BP diastolic 59–106
[2018-04-03] MEDS: HEPARIN SODIUM 25000 UNITS/D5W 250 ML IV PRN ×2 (02:34→22:08)
[2018-04-03 05:19] LABS: BASOPHILS % (AUTO) 0.4 % (0.0-2.0); EOSINOPHILS % (AUTO) 1.9 % (1.0-6.0); HEMATOCRIT 32.5 % (36-46); HEMOGLOBIN 10.4 g/dL (12.0-16.0); LYMPHOCYTES # (AUTO) 1.6 K/uL (1.0-4.8); LYMPHOCYTES % (AUTO) 35.9 % (22.0-44.0); MEAN CORPUSCULAR HEMOGLOBIN 26.4 pg (26.0-34.0); MEAN CORPUSCULAR HGB CONC 32.1 G/dL (31.0-37.0); MEAN CORPUSCULAR VOLUME 82 fL (80-100); MONOCYTES # (AUTO) 0.6 K/uL (0.1-1.0); MONOCYTES % (AUTO) 12.8 % (2.0-9.0); NEUTROPHILS # (AUTO) 2.3 K/uL (1.8-7.7); PLATELET COUNT (AUTO) 329 K/uL (150-450); RED BLOOD CELL COUNT(AUTO) 3.95 MIL/uL (4.00-5.20)
[2018-04-03] MEDS: LEVOTHYROXINE SODIUM 25 MCG TABLET PO SCH (07:04)
[2018-04-03] MEDS: HYDROCODONE/ACETAMINOPHEN 5-325 MG TABLET PO PRN ×3 (07:04→17:46)
[2018-04-03] MEDS ORDERED: DIGOXIN 250 MCG/ML 2 ML AMP IVP ONE (07:45)
[2018-04-03] MEDS: ASPIRIN 81 MG CHEWABLE TABLET PO SCH (08:08)
[2018-04-03] MEDS: DOCUSATE SODIUM 100 MG CAPSULE PO SCH ×2 (08:08→20:09)
[2018-04-03] MEDS: CARVEDILOL PHOSPHATE 20 MG CR CAPSULE PO SCH (08:09)
[2018-04-03] MEDS: PANTOPRAZOLE SODIUM 40 MG DR TABLET PO SCH (08:09)
[2018-04-03] MEDS: DILTIAZEM HCL CD 240 MG ER CAPSULE PO SCH (08:09)
[2018-04-03 08:51] LABS: CALCIUM, TOTAL 8.4 mg/dL (8.8-10.5); CREATININE 1.16 mg/dL (0.60-1.30)
[2018-04-03] MEDS ORDERED: FUROSEMIDE 40 MG TABLET PO SCH (09:00)
[2018-04-03] MEDS ORDERED: FUROSEMIDE 20 MG/2 ML VIAL IVP SCH (09:00)
[2018-04-03] MEDS ORDERED: POTASSIUM CHL 10 MEQ/WATER 50 ML IV PRN (10:30)
[2018-04-03] MEDS: POTASSIUM CHLORIDE 20 MEQ ER TABLET PO PRN ×2 (10:39→17:46)
[2018-04-03] MEDS ORDERED: DILTIAZEM HCL 125 MG in DEXTROSE 5%-WATER 100 ML IV PRN (11:00)
[2018-04-04 03:05] VITALS: BP 128/75
[2018-04-04] MEDS: HYDROCODONE/ACETAMINOPHEN 5-325 MG TABLET PO PRN ×4 (03:10→22:10)
[2018-04-04 05:55] LABS: BASOPHILS % (AUTO) 1.7 % (0.0-2.0); EOSINOPHILS % (AUTO) 3.7 % (1.0-6.0); HEMATOCRIT 32.6 % (36-46); HEMOGLOBIN 10.4 g/dL (12.0-16.0); LYMPHOCYTES # (AUTO) 1.4 K/uL (1.0-4.8); LYMPHOCYTES % (AUTO) 36.7 % (22.0-44.0); MEAN CORPUSCULAR HEMOGLOBIN 26.7 pg (26.0-34.0); MEAN CORPUSCULAR VOLUME 84 fL (80-100); MONOCYTES # (AUTO) 0.5 K/uL (0.1-1.0); NEUTROPHILS # (AUTO) 1.7 K/uL (1.8-7.7); NEUTROPHILS % (AUTO) 45.9 % (40.0-70.0); PLATELET COUNT (AUTO) 266 K/uL (150-450); RED BLOOD CELL COUNT(AUTO) 3.89 MIL/uL (4.00-5.20); RED CELL DISTRIBUTION WIDTH 20.3 % (11.5-14.5)
[2018-04-04] MEDS: LEVOTHYROXINE SODIUM 25 MCG TABLET PO SCH (06:11)
[2018-04-04 06:31] LABS: ALANINE AMINOTRANSFERASE 23 U/L (12-78); ALBUMIN 2.9 g/dL (3.4-5.0); ALKALINE PHOSPHATASE 83 U/L (46-116); ANION GAP 8 mmol/L (8-16); ASPARTATE AMINOTRANSFERASE 30 U/L (15-37); BILIRUBIN,TOTAL 0.4 mg/dL (0.1-1.0); CALCIUM, TOTAL 8.5 mg/dL (8.8-10.5); CARBON DIOXIDE 26 mmol/L (22-29); CHLORIDE 106 mmol/L (98-107); GLOMERULAR FILTR. RATE CALC > 60 mL/min (>60); GLUCOSE,RANDOM 93 mg/dL (70-110); POTASSIUM 4.4 mmol/L (3.5-5.1); SODIUM SERUM 140 mmol/L (136-145); TOTAL PROTEIN, SERUM 6.1 g/dL (6.4-8.2); UREA NITROGEN, BLOOD 11 mg/dL (7-18)
[2018-04-04 09:16] VITALS: BP 119/78
[2018-04-04] MEDS: DOCUSATE SODIUM 100 MG CAPSULE PO SCH ×2 (09:16→20:40)
[2018-04-04] MEDS: PANTOPRAZOLE SODIUM 40 MG DR TABLET PO SCH (09:16)
[2018-04-04] MEDS: DILTIAZEM HCL CD 240 MG ER CAPSULE PO SCH (09:17)
[2018-04-04] MEDS: CARVEDILOL PHOSPHATE 20 MG CR CAPSULE PO SCH (09:17)
[2018-04-04] MEDS: ASPIRIN 81 MG CHEWABLE TABLET PO SCH (09:17)
[2018-04-04] MEDS: HEPARIN SODIUM 25000 UNITS/D5W 250 ML IV PRN (09:52)
[2018-04-04 12:10] VITALS: BP 134/86
[2018-04-04] MEDS ORDERED: APIXABAN 5 MG TABLET PO SCH ×2 (13:00→21:00)
[2018-04-04 16:14] VITALS: BP 112/76
[2018-04-04 20:02] VITALS: BP 92/57
[2018-04-04 22:08] VITALS: BP 129/67
[2018-04-05 00:21] VITALS: BP 109/75
[2018-04-05 05:28] VITALS: BP 118/66
[2018-04-05] MEDS: LEVOTHYROXINE SODIUM 25 MCG TABLET PO SCH (06:03)
[2018-04-05] MEDS: HYDROCODONE/ACETAMINOPHEN 5-325 MG TABLET PO PRN ×2 (06:03→13:04)
[2018-04-05 06:50] LABS: BASOPHILS % (AUTO) 0.3 % (0.0-2.0); EOSINOPHILS % (AUTO) 3.6 % (1.0-6.0); HEMATOCRIT 32.1 % (36-46); HEMOGLOBIN 10.2 g/dL (12.0-16.0); LYMPHOCYTES % (AUTO) 37.2 % (22.0-44.0); MEAN CORPUSCULAR HEMOGLOBIN 26.5 pg (26.0-34.0); MEAN CORPUSCULAR HGB CONC 31.9 G/dL (31.0-37.0); MEAN CORPUSCULAR VOLUME 83 fL (80-100); MONOCYTES # (AUTO) 0.4 K/uL (0.1-1.0); MONOCYTES % (AUTO) 14.6 % (2.0-9.0); NEUTROPHILS # (AUTO) 1.2 K/uL (1.8-7.7); NEUTROPHILS % (AUTO) 44.3 % (40.0-70.0); PLATELET COUNT (AUTO) 306 K/uL (150-450); RED BLOOD CELL COUNT(AUTO) 3.85 MIL/uL (4.00-5.20)
[2018-04-05 07:15] LABS: ALANINE AMINOTRANSFERASE 20 U/L (12-78); ALBUMIN 2.9 g/dL (3.4-5.0); ALKALINE PHOSPHATASE 77 U/L (46-116); ANION GAP 6 mmol/L (8-16); ASPARTATE AMINOTRANSFERASE 16 U/L (15-37); BILIRUBIN,TOTAL 0.4 mg/dL (0.1-1.0); CALCIUM, TOTAL 8.5 mg/dL (8.8-10.5); CARBON DIOXIDE 27 mmol/L (22-29); CHLORIDE 105 mmol/L (98-107); CREATININE 0.73 mg/dL (0.60-1.30); GLOMERULAR FILTR. RATE CALC > 60 mL/min (>60); GLUCOSE,RANDOM 100 mg/dL (70-110); POTASSIUM 4.1 mmol/L (3.5-5.1); SODIUM SERUM 138 mmol/L (136-145); TOTAL PROTEIN, SERUM 5.9 g/dL (6.4-8.2); UREA NITROGEN, BLOOD 11 mg/dL (7-18)
[2018-04-05 08:06] VITALS: BP 133/78
[2018-04-05] MEDS: CARVEDILOL PHOSPHATE 20 MG CR CAPSULE PO SCH (08:28)
[2018-04-05] MEDS: PANTOPRAZOLE SODIUM 40 MG DR TABLET PO SCH (08:28)
[2018-04-05] MEDS: ASPIRIN 81 MG CHEWABLE TABLET PO SCH (08:28)
[2018-04-05] MEDS: DILTIAZEM HCL CD 240 MG ER CAPSULE PO SCH (08:28)
[2018-04-05] MEDS: DOCUSATE SODIUM 100 MG CAPSULE PO SCH (08:30)
[2018-04-05 11:40] VITALS: BP 111/79
[2018-04-05 16:00] VITALS: BP 118/75
== END 2018-04-05 18:15 | disposition home or self-care (01) | DRG 201 ==
LOC: EMS 20:30 → ICU 04-03 00:03 → 5S 04-03 12:45
PROVIDERS: ADMIT Internal Medicine; ATTEND Internal Medicine
DX: I48.91 Unspecified atrial fibrillation (principal); I50.31 Acute diastolic (congestive) heart failure; N17.9 Acute kidney failure, unspecified; I11.0 Hypertensive heart disease with heart failure; E87.6 Hypokalemia; F19.10 Other psychoactive substance abuse, uncomplicated; F10.20 Alcohol dependence, uncomplicated; E03.9 Hypothyroidism, unspecified; F20.9 Schizophrenia, unspecified; D64.9 Anemia, unspecified; E78.00 Pure hypercholesterolemia, unspecified; F17.210 Nicotine dependence, cigarettes, uncomplicated; Z79.82 Long term (current) use of aspirin; Z79.899 Other long term (current) drug therapy; Z91.19 Patient's noncompliance with other medical treatment and regimen; Z91.14 Patient's other noncompliance with medication regimen; Z88.8 Allergy status to other drugs, medicaments and biological substances
CPT/HCPCS: 83735; 84132; 84443; 87081; 93005; 93306; 96374; 96375; 99291; G0480; J1160; J1644; J1940; J2060; J2270; J3490; J7060

== ENCOUNTER 2018-04-27 09:43 | Inpatient (IN) | payer OTHER ==
[~2018-04-27] VITALS: Ht 175.3 cm; Wt 93.0 kg
[~2018-04-27 09:43] MED LIST changes: -FURO40 PO; -HALO5TAB2 PO; -HALOD50I IM; -HYDR-4061 PO; -KDUR10 PO; -LISI-660 PO
[2018-04-27] MEDS ORDERED: LORazepam 2 MG/ML VIAL IM ONE (10:00)
[2018-04-27] MEDS ORDERED: HALOPERIDOL LACTATE 5 MG/ML VIAL IM ONE (10:00)
[2018-04-27] MEDS ORDERED: DiphenhydrAMINE HCL 50 MG/ML VIAL IM ONE (10:00)
[2018-04-27] MEDS ORDERED: DILTIAZEM HCL 5 MG/ML 5 ML VIAL IVP ONE (10:30)
[2018-04-27 10:33] LABS: AMPHET/METH SCREEN,URINE NEGATIVE (NEGATIVE); BARBITURATE SCREEN, URINE NEGATIVE (NEGATIVE); BENZODIAZEPINES SCREEN,URINE NEGATIVE (NEGATIVE); CANNABINOID SCREEN,URINE POSITIVE (NEGATIVE); COCAINE SCREEN,URINE POSITIVE (NEGATIVE); METHADONE SCREEN, URINE NEGATIVE (NEGATIVE); OPIATE SCREEN,URINE NEGATIVE (NEGATIVE)
[2018-04-27 10:36] LABS: PHENCYCLIDINE SCREEN,URINE NEGATIVE (NEGATIVE)
[2018-04-27 10:38] LABS: BASOPHILS % (AUTO) 1.8 % (0.0-2.0); EOSINOPHILS % (AUTO) 1.1 % (1.0-6.0); HEMATOCRIT 34.1 % (36-46); HEMOGLOBIN 10.9 g/dL (12.0-16.0); LYMPHOCYTES # (AUTO) 1.1 K/uL (1.0-4.8); LYMPHOCYTES % (AUTO) 24.4 % (22.0-44.0); MEAN CORPUSCULAR HEMOGLOBIN 26.6 pg (26.0-34.0); MEAN CORPUSCULAR HGB CONC 31.9 G/dL (31.0-37.0); MEAN CORPUSCULAR VOLUME 84 fL (80-100); MONOCYTES # (AUTO) 0.5 K/uL (0.1-1.0); MONOCYTES % (AUTO) 10.5 % (2.0-9.0); NEUTROPHILS # (AUTO) 2.9 K/uL (1.8-7.7); NEUTROPHILS % (AUTO) 62.2 % (40.0-70.0); PLATELET COUNT (AUTO) 260 K/uL (150-450); RED BLOOD CELL COUNT(AUTO) 4.08 MIL/uL (4.00-5.20)
[2018-04-27 10:43] LABS: ANION GAP 10 mmol/L (8-16); CARBON DIOXIDE 25 mmol/L (22-29); CHLORIDE 109 mmol/L (98-107); CREATININE 0.95 mg/dL (0.60-1.30); GLOMERULAR FILTR. RATE CALC > 60 mL/min (>60); GLUCOSE,RANDOM 129 mg/dL (70-110); POTASSIUM 3.2 mmol/L (3.5-5.1); SODIUM SERUM 144 mmol/L (136-145); UREA NITROGEN, BLOOD 23 mg/dL (7-18)
[2018-04-27 10:50] LABS: ALANINE AMINOTRANSFERASE 23 U/L (12-78); ALBUMIN 3.7 g/dL (3.4-5.0); ALKALINE PHOSPHATASE 88 U/L (46-116); ASPARTATE AMINOTRANSFERASE 28 U/L (15-37); BILIRUBIN,TOTAL 0.5 mg/dL (0.1-1.0); TOTAL PROTEIN, SERUM 7.1 g/dL (6.4-8.2)
[2018-04-27 10:59] LABS: B-TYPE NATRIURETIC PEPTIDE 434 pg/mL (0-100)
[2018-04-27] MEDS ORDERED: SODIUM CHLORIDE 0.9% 0 ML IV ONE (11:58)
[2018-04-27] MEDS ORDERED: ACETAMINOPHEN 325 MG TABLET PO PRN (12:30)
[2018-04-27] MEDS ORDERED: ONDANSETRON HCL 4 MG/2 ML VIAL IVP PRN ×2 (12:30→22:45)
[2018-04-27 17:14] VITALS: BP 135/83
[2018-04-27] MEDS ORDERED: POTASSIUM CHL 10 MEQ/WATER 50 ML IV PRN (17:45)
[2018-04-27] MEDS ORDERED: POTASSIUM CHLORIDE 20 MEQ ER TABLET PO PRN (17:45)
[2018-04-27] MEDS ORDERED: DILTIAZEM HCL 125 MG in DEXTROSE 5%-WATER 100 ML IV SCH ×2 (18:00→18:13)
[2018-04-27] MEDS ORDERED: SODIUM CHLORIDE 0.9% 250 ML IV ONE (18:25)
[2018-04-27 19:54] VITALS: BP 142/98
[2018-04-27] MEDS: DOCUSATE SODIUM 100 MG CAPSULE PO SCH (22:45)
[2018-04-27] MEDS ORDERED: ZOLPIDEM TARTRATE 5 MG TABLET PO PRN (22:45)
[2018-04-27] MEDS ORDERED: 0.9% SODIUM CHLORIDE 10 ML SYRINGE IVP PRN (22:45)
[2018-04-27] MEDS: DIVALPROEX SODIUM 500 MG ER TABLET PO SCH (22:59)
[2018-04-27 23:35] VITALS: BP 142/99
[2018-04-28] MEDS: HEPARIN SODIUM,PORCINE 5,000 UNITS/ML VIAL SQ SCH ×2 (00:05→08:00)
[2018-04-28] MEDS: LORazepam 2 MG/ML VIAL IVP PRN ×4 (00:30→12:30)
[2018-04-28 04:37] VITALS: BP 132/97
[2018-04-28] MEDS: LEVOTHYROXINE SODIUM 25 MCG TABLET PO SCH (06:18)
[2018-04-28 06:34] LABS: BASOPHILS % (AUTO) 0.9 % (0.0-2.0); EOSINOPHILS % (AUTO) 1.8 % (1.0-6.0); HEMATOCRIT 33.6 % (36-46); HEMOGLOBIN 10.6 g/dL (12.0-16.0); LYMPHOCYTES # (AUTO) 1.1 K/uL (1.0-4.8); LYMPHOCYTES % (AUTO) 21.4 % (22.0-44.0); MEAN CORPUSCULAR HEMOGLOBIN 26.6 pg (26.0-34.0); MEAN CORPUSCULAR HGB CONC 31.5 G/dL (31.0-37.0); MEAN CORPUSCULAR VOLUME 85 fL (80-100); MONOCYTES # (AUTO) 0.4 K/uL (0.1-1.0); MONOCYTES % (AUTO) 8.9 % (2.0-9.0); NEUTROPHILS # (AUTO) 3.3 K/uL (1.8-7.7); PLATELET COUNT (AUTO) 265 K/uL (150-450); RED BLOOD CELL COUNT(AUTO) 3.98 MIL/uL (4.00-5.20); RED CELL DISTRIBUTION WIDTH 22.5 % (11.5-14.5)
[2018-04-28 07:21] VITALS: BP 138/90
[2018-04-28 07:53] LABS: ANION GAP 10 mmol/L (8-16); CALCIUM, TOTAL 8.6 mg/dL (8.8-10.5); CARBON DIOXIDE 24 mmol/L (22-29); CHLORIDE 107 mmol/L (98-107); CREATININE 0.79 mg/dL (0.60-1.30); GLOMERULAR FILTR. RATE CALC > 60 mL/min (>60); GLUCOSE,RANDOM 140 mg/dL (70-110); POTASSIUM 4.3 mmol/L (3.5-5.1); SODIUM SERUM 141 mmol/L (136-145); UREA NITROGEN, BLOOD 13 mg/dL (7-18)
[2018-04-28] MEDS ORDERED: CARVEDILOL PHOSPHATE 20 MG CR CAPSULE PO SCH (09:00)
[2018-04-28] MEDS ORDERED: DILTIAZEM HCL CD 240 MG ER CAPSULE PO SCH (09:00)
[2018-04-28] MEDS: DOCUSATE SODIUM 100 MG CAPSULE PO SCH ×2 (09:00→20:44)
[2018-04-28] MEDS: ASPIRIN 81 MG CHEWABLE TABLET PO SCH (09:07)
[2018-04-28] MEDS: PANTOPRAZOLE SODIUM 40 MG DR TABLET PO SCH (09:07)
[2018-04-28 11:11] VITALS: BP 138/89
[2018-04-28] MEDS: METOPROLOL SUCCINATE 50 MG ER TABLET PO SCH ×2 (11:30→12:29)
[2018-04-28] MEDS: POTASSIUM CHLORIDE 8 MEQ ER TABLET PO SCH ×2 (11:30→12:29)
[2018-04-28] MEDS: FUROSEMIDE 20 MG/2 ML VIAL IVP SCH ×2 (11:30→12:29)
[2018-04-28 12:09] LABS: THYROID STIMULATING HORMONE 2.55 uIU/mL (0.36-3.74)
[2018-04-28] MEDS ORDERED: QUEtiapine FUMARATE 100 MG TABLET PO PRN (12:45)
[2018-04-28] MEDS ORDERED: LORazepam 1 MG TABLET PO ONE (12:45)
[2018-04-28 15:01] VITALS: BP 136/95
[2018-04-28] MEDS: ACETAMINOPHEN 325 MG TABLET PO PRN (15:56)
[2018-04-28 20:02] VITALS: BP 124/87
[2018-04-28] MEDS: APIXABAN 5 MG TABLET PO SCH (20:44)
[2018-04-28] MEDS: DIVALPROEX SODIUM 500 MG ER TABLET PO SCH (20:44)
[2018-04-28] MEDS: LORazepam 2 MG TABLET PO PRN (20:44)
[2018-04-28 23:41] VITALS: BP 130/85
[2018-04-29 05:21] VITALS: BP 127/70
[2018-04-29] MEDS: LORazepam 2 MG TABLET PO PRN (05:30)
[2018-04-29] MEDS: LEVOTHYROXINE SODIUM 25 MCG TABLET PO SCH (06:20)
[2018-04-29 07:04] VITALS: BP 143/99
[2018-04-29 08:27] LABS: ALANINE AMINOTRANSFERASE 20 U/L (12-78); ALBUMIN 3.2 g/dL (3.4-5.0); ALKALINE PHOSPHATASE 85 U/L (46-116); ANION GAP 12 mmol/L (8-16); ASPARTATE AMINOTRANSFERASE 25 U/L (15-37); BILIRUBIN,TOTAL 0.5 mg/dL (0.1-1.0); CALCIUM, TOTAL 8.5 mg/dL (8.8-10.5); CARBON DIOXIDE 23 mmol/L (22-29); CHLORIDE 103 mmol/L (98-107); CREATININE 0.75 mg/dL (0.60-1.30); GLOMERULAR FILTR. RATE CALC > 60 mL/min (>60); GLUCOSE,RANDOM 203 mg/dL (70-110); POTASSIUM 4.4 mmol/L (3.5-5.1); SODIUM SERUM 138 mmol/L (136-145); TOTAL PROTEIN, SERUM 6.6 g/dL (6.4-8.2); UREA NITROGEN, BLOOD 9 mg/dL (7-18)
[2018-04-29] MEDS ORDERED: CARVEDILOL PHOSPHATE 10 MG CR CAPSULE PO SCH (09:00)
[2018-04-29] MEDS ORDERED: VERAPAMIL HCL 180 MG ER TABLET PO SCH (09:00)
[2018-04-29 09:38] LABS: BASOPHILS % (AUTO) 1.2 % (0.0-2.0); EOSINOPHILS % (AUTO) 1.8 % (1.0-6.0); HEMATOCRIT 31.2 % (36-46); HEMOGLOBIN 9.9 g/dL (12.0-16.0); LYMPHOCYTES # (AUTO) 0.8 K/uL (1.0-4.8); LYMPHOCYTES % (AUTO) 16.8 % (22.0-44.0); MEAN CORPUSCULAR HEMOGLOBIN 26.6 pg (26.0-34.0); MEAN CORPUSCULAR HGB CONC 31.8 G/dL (31.0-37.0); MEAN CORPUSCULAR VOLUME 84 fL (80-100); MONOCYTES # (AUTO) 0.4 K/uL (0.1-1.0); MONOCYTES % (AUTO) 8.1 % (2.0-9.0); NEUTROPHILS # (AUTO) 3.3 K/uL (1.8-7.7); NEUTROPHILS % (AUTO) 72.1 % (40.0-70.0); PLATELET COUNT (AUTO) 257 K/uL (150-450); RED BLOOD CELL COUNT(AUTO) 3.73 MIL/uL (4.00-5.20); RED CELL DISTRIBUTION WIDTH 21.6 % (11.5-14.5)
[2018-04-29 11:44] VITALS: BP 135/84
[2018-04-29] MEDS: ACETAMINOPHEN 325 MG TABLET PO PRN (12:09)
[2018-04-29] MEDS: DOCUSATE SODIUM 100 MG CAPSULE PO SCH (12:09)
[2018-04-29] MEDS: APIXABAN 5 MG TABLET PO SCH (12:09)
[2018-04-29] MEDS: ASPIRIN 81 MG CHEWABLE TABLET PO SCH (12:09)
[2018-04-29] MEDS: PANTOPRAZOLE SODIUM 40 MG DR TABLET PO SCH (12:09)
[2018-04-29] MEDS: POTASSIUM CHLORIDE 8 MEQ ER TABLET PO SCH (12:10)
[2018-04-29] MEDS: FUROSEMIDE 20 MG/2 ML VIAL IVP SCH (12:10)
== END 2018-04-29 13:30 | DRG 201 ==
LOC: EMS 09:45 → 5S 16:00
PROVIDERS: ADMIT Internal Medicine; ATTEND Internal Medicine
DX: I48.91 Unspecified atrial fibrillation (principal); N17.9 Acute kidney failure, unspecified; I11.0 Hypertensive heart disease with heart failure; I50.9 Heart failure, unspecified; F25.0 Schizoaffective disorder, bipolar type; F10.20 Alcohol dependence, uncomplicated; E87.6 Hypokalemia; D64.9 Anemia, unspecified; F12.10 Cannabis abuse, uncomplicated; F14.10 Cocaine abuse, uncomplicated; J44.9 Chronic obstructive pulmonary disease, unspecified; E78.00 Pure hypercholesterolemia, unspecified; E03.9 Hypothyroidism, unspecified; Z91.19 Patient's noncompliance with other medical treatment and regimen; Z87.891 Personal history of nicotine dependence
CPT/HCPCS: 83735; 84443; 93005; 93306; 96372; 96374; 99291; G0480; J1200; J1630; J1644; J1940; J2060; J3490; J7030; J7050; J7060

== ENCOUNTER 2018-04-29 14:57 | Inpatient (IN) | payer MEDICAID ==
[~2018-04-29] VITALS: Ht 172.7 cm; Wt 92.9 kg
[2018-04-29] MEDS ORDERED: ZOLPIDEM TARTRATE 10 MG TABLET PO PRN (15:30)
[2018-04-29] MEDS ORDERED: HALOPERIDOL 5 MG TABLET PO PRN (15:30)
[2018-04-29] MEDS ORDERED: BENZOCAINE/MENTHOL LOZENGE MM PRN (15:45)
[2018-04-29] MEDS ORDERED: CloNIDine HCL 0.1 MG TABLET PO PRN (15:45)
[2018-04-29] MEDS ORDERED: ONDANSETRON HCL 4 MG TABLET PO PRN (15:45)
[2018-04-29] MEDS ORDERED: BACITRACIN 28.4 GM OINTMENT TP PRN (15:45)
[2018-04-29] MEDS ORDERED: LOPERAMIDE HCL 2 MG CAPSULE PO PRN (15:45)
[2018-04-29] MEDS ORDERED: MAG HYDROX/AL HYDROX/SIMETH ES 30 ML SUSPENSION UDCUP PO PRN (15:45)
[2018-04-29] MEDS ORDERED: PETROLATUM,WHITE 71 GM JELLY TP PRN (15:45)
[2018-04-29] MEDS ORDERED: ACETAMINOPHEN 325 MG TABLET PO PRN (15:45)
[2018-04-29] MEDS ORDERED: MAGNESIUM HYDROXIDE SUSPENSION 30 ML UDCUP PO PRN (15:45)
[2018-04-29] MEDS: IBUPROFEN 600 MG TABLET PO PRN (16:36)
[2018-04-29 16:37] VITALS: BP 107/65
[2018-04-29] MEDS: LORazepam 2 MG TABLET PO PRN (18:03)
[2018-04-29] MEDS: VERAPAMIL HCL 180 MG ER TABLET PO SCH (20:44)
[2018-04-29] MEDS: DIVALPROEX SODIUM 500 MG ER TABLET PO SCH (20:52)
[2018-04-29] MEDS: ALBUTEROL SULFATE HFA 90 MCG/PUFF 8 GM INHALER IH PRN (20:58)
[2018-04-30 03:02] VITALS: BP 112/71
[2018-04-30] MEDS: IBUPROFEN 600 MG TABLET PO PRN ×2 (03:02→11:35)
[2018-04-30] MEDS: LEVOTHYROXINE SODIUM 25 MCG TABLET PO SCH (06:44)
[2018-04-30] MEDS ORDERED: ALBUTEROL SULFATE 2.5 MG/0.5 ML NEB SOLUTION NEB PRN (07:15)
[2018-04-30] MEDS ORDERED: IPRATROPIUM BROMIDE 0.5 MG/2.5 ML NEB SOLUTION NEB PRN (07:15)
[2018-04-30] MEDS: DOCUSATE SODIUM 100 MG CAPSULE PO SCH (07:59)
[2018-04-30] MEDS: FUROSEMIDE 20 MG TABLET PO SCH (07:59)
[2018-04-30] MEDS: OMEPRAZOLE 20 MG CAPSULE PO SCH (07:59)
[2018-04-30] MEDS: CARVEDILOL PHOSPHATE 10 MG CR CAPSULE PO SCH (08:00)
[2018-04-30] MEDS: ASPIRIN 81 MG CHEWABLE TABLET PO SCH (08:00)
[2018-04-30] MEDS: APIXABAN 5 MG TABLET PO SCH ×2 (08:01→17:04)
[2018-04-30] MEDS: METOPROLOL SUCCINATE 50 MG ER TABLET PO SCH (08:01)
[2018-04-30] MEDS: POTASSIUM CHLORIDE 8 MEQ ER TABLET PO SCH (08:01)
[2018-04-30] MEDS: VERAPAMIL HCL 180 MG ER TABLET PO SCH ×2 (08:02→20:15)
[2018-04-30 08:37] VITALS: BP 126/84
[2018-04-30] MEDS ORDERED: PANTOPRAZOLE SODIUM 40 MG DR TABLET PO SCH (09:00)
[2018-04-30] MEDS ORDERED: DILTIAZEM HCL CD 240 MG ER CAPSULE PO SCH (09:00)
[2018-04-30] MEDS ORDERED: DOCUSATE SODIUM 100 MG CAPSULE PO SCH (09:00)
[2018-04-30 11:36] VITALS: BP 116/55
[2018-04-30 12:36] VITALS: BP 123/76
[2018-04-30] MEDS: ALBUTEROL SULFATE HFA 90 MCG/PUFF 8 GM INHALER IH PRN (14:36)
[2018-04-30] MEDS: DIVALPROEX SODIUM 500 MG ER TABLET PO SCH (20:15)
[2018-04-30 21:01] VITALS: BP 121/70
[2018-05-01 00:45] VITALS: BP 147/90
[2018-05-01] MEDS: IBUPROFEN 600 MG TABLET PO PRN ×2 (00:55→10:41)
[2018-05-01] MEDS: LORazepam 2 MG TABLET PO PRN (01:00)
[2018-05-01] MEDS: ALBUTEROL SULFATE HFA 90 MCG/PUFF 8 GM INHALER IH PRN (01:01)
[2018-05-01 04:00] VITALS: BP 129/97
[2018-05-01] MEDS: LEVOTHYROXINE SODIUM 25 MCG TABLET PO SCH (06:43)
[2018-05-01 08:00] VITALS: BP 148/79
[2018-05-01 08:09] LABS: BASOPHILS % (AUTO) 1.2 % (0.0-2.0); EOSINOPHILS % (AUTO) 1.7 % (1.0-6.0); HEMATOCRIT 33.4 % (36-46); HEMOGLOBIN 10.6 g/dL (12.0-16.0); LYMPHOCYTES # (AUTO) 0.9 K/uL (1.0-4.8); MEAN CORPUSCULAR HEMOGLOBIN 26.8 pg (26.0-34.0); MEAN CORPUSCULAR HGB CONC 31.8 G/dL (31.0-37.0); MEAN CORPUSCULAR VOLUME 84 fL (80-100); MONOCYTES # (AUTO) 0.3 K/uL (0.1-1.0); MONOCYTES % (AUTO) 8.2 % (2.0-9.0); NEUTROPHILS # (AUTO) 2.9 K/uL (1.8-7.7); NEUTROPHILS % (AUTO) 67.9 % (40.0-70.0); PLATELET COUNT (AUTO) 262 K/uL (150-450); RED BLOOD CELL COUNT(AUTO) 3.96 MIL/uL (4.00-5.20)
[2018-05-01 08:17] LABS: HEMOGLOBIN A1C 5.9 % (4.5-6.2)
[2018-05-01 08:28] LABS: ALANINE AMINOTRANSFERASE 20 U/L (12-78); ALBUMIN 3.3 g/dL (3.4-5.0); ALKALINE PHOSPHATASE 98 U/L (46-116); ANION GAP 10 mmol/L (8-16); ASPARTATE AMINOTRANSFERASE 14 U/L (15-37); BILIRUBIN,TOTAL 0.5 mg/dL (0.1-1.0); CARBON DIOXIDE 26 mmol/L (22-29); CHLORIDE 102 mmol/L (98-107); CREATININE 0.79 mg/dL (0.60-1.30); GLOMERULAR FILTR. RATE CALC > 60 mL/min (>60); GLUCOSE,RANDOM 192 mg/dL (70-110); PHOSPHORUS 3.4 mg/dL (2.5-4.9); POTASSIUM 4.7 mmol/L (3.5-5.1); SODIUM SERUM 138 mmol/L (136-145); TOTAL PROTEIN, SERUM 6.9 g/dL (6.4-8.2); UREA NITROGEN, BLOOD 12 mg/dL (7-18)
[2018-05-01] MEDS: POTASSIUM CHLORIDE 8 MEQ ER TABLET PO SCH (09:05)
[2018-05-01] MEDS: DOCUSATE SODIUM 100 MG CAPSULE PO SCH (09:05)
[2018-05-01] MEDS: OMEPRAZOLE 20 MG CAPSULE PO SCH (09:05)
[2018-05-01] MEDS: APIXABAN 5 MG TABLET PO SCH ×2 (09:05→16:16)
[2018-05-01] MEDS: CARVEDILOL PHOSPHATE 10 MG CR CAPSULE PO SCH (09:06)
[2018-05-01] MEDS: VERAPAMIL HCL 180 MG ER TABLET PO SCH ×2 (09:06→21:11)
[2018-05-01] MEDS: ASPIRIN 81 MG CHEWABLE TABLET PO SCH (09:06)
[2018-05-01] MEDS: FUROSEMIDE 20 MG TABLET PO SCH (09:06)
[2018-05-01] MEDS: METOPROLOL SUCCINATE 50 MG ER TABLET PO SCH (09:06)
[2018-05-01] MEDS ORDERED: QUET200T PO (09:56)
[2018-05-01] MEDS ORDERED: QUET100T PO (09:56)
[2018-05-01] MEDS: QUEtiapine FUMARATE 100 MG TABLET PO SCH ×2 (10:18→16:16)
[2018-05-01 10:41] VITALS: BP 130/90
[2018-05-01 16:00] VITALS: BP 146/67
[2018-05-01] MEDS: QUEtiapine FUMARATE 200 MG TABLET PO SCH (21:12)
[2018-05-01] MEDS: DIVALPROEX SODIUM 500 MG ER TABLET PO SCH (21:12)
[2018-05-02] MEDS: ALBUTEROL SULFATE HFA 90 MCG/PUFF 8 GM INHALER IH PRN ×2 (04:52→10:35)
[2018-05-02] MEDS: LEVOTHYROXINE SODIUM 25 MCG TABLET PO SCH (07:12)
[2018-05-02 08:05] VITALS: BP 103/62
[2018-05-02] MEDS: DOCUSATE SODIUM 100 MG CAPSULE PO SCH (08:42)
[2018-05-02] MEDS: FUROSEMIDE 20 MG TABLET PO SCH (08:42)
[2018-05-02] MEDS: OMEPRAZOLE 20 MG CAPSULE PO SCH (08:42)
[2018-05-02] MEDS: VERAPAMIL HCL 180 MG ER TABLET PO SCH ×2 (08:43→21:11)
[2018-05-02] MEDS: APIXABAN 5 MG TABLET PO SCH ×2 (08:43→16:58)
[2018-05-02] MEDS: ASPIRIN 81 MG CHEWABLE TABLET PO SCH (08:43)
[2018-05-02] MEDS: QUEtiapine FUMARATE 100 MG TABLET PO SCH ×2 (08:43→16:58)
[2018-05-02] MEDS: CARVEDILOL PHOSPHATE 10 MG CR CAPSULE PO SCH (08:43)
[2018-05-02] MEDS: METOPROLOL SUCCINATE 50 MG ER TABLET PO SCH (08:44)
[2018-05-02] MEDS: POTASSIUM CHLORIDE 8 MEQ ER TABLET PO SCH (08:44)
[2018-05-02] MEDS: IBUPROFEN 600 MG TABLET PO PRN (10:36)
[2018-05-02 16:42] VITALS: BP 100/57
[2018-05-02] MEDS: DIVALPROEX SODIUM 500 MG ER TABLET PO SCH (21:11)
[2018-05-02] MEDS: QUEtiapine FUMARATE 200 MG TABLET PO SCH (21:11)
[2018-05-03 00:02] VITALS: BP 110/70
[2018-05-03] MEDS: IBUPROFEN 600 MG TABLET PO PRN ×2 (00:07→08:06)
[2018-05-03] MEDS: ALBUTEROL SULFATE HFA 90 MCG/PUFF 8 GM INHALER IH PRN (00:08)
[2018-05-03] MEDS: LEVOTHYROXINE SODIUM 25 MCG TABLET PO SCH (06:56)
[2018-05-03 08:05] VITALS: BP 115/74
[2018-05-03] MEDS: FUROSEMIDE 20 MG TABLET PO SCH (08:05)
[2018-05-03] MEDS: DOCUSATE SODIUM 100 MG CAPSULE PO SCH (08:05)
[2018-05-03] MEDS: OMEPRAZOLE 20 MG CAPSULE PO SCH (08:06)
[2018-05-03] MEDS: POTASSIUM CHLORIDE 8 MEQ ER TABLET PO SCH (08:06)
[2018-05-03] MEDS: CARVEDILOL PHOSPHATE 10 MG CR CAPSULE PO SCH (08:06)
[2018-05-03] MEDS: APIXABAN 5 MG TABLET PO SCH (08:06)
[2018-05-03] MEDS: ASPIRIN 81 MG CHEWABLE TABLET PO SCH (08:06)
[2018-05-03] MEDS: VERAPAMIL HCL 180 MG ER TABLET PO SCH (08:06)
[2018-05-03] MEDS: QUEtiapine FUMARATE 100 MG TABLET PO SCH (08:06)
[2018-05-03] MEDS: METOPROLOL SUCCINATE 50 MG ER TABLET PO SCH (08:07)
[2018-05-03 09:11] VITALS: BP 115/74
[2018-05-03] MEDS ORDERED: DIVA500T52 PO (09:18)
[2018-05-03] MEDS ORDERED: QUET100T33 PO (09:18)
[2018-05-03] MEDS ORDERED: QUET200T29 PO (09:18)
[2018-05-03] MEDS ORDERED: DSS100 PO (09:47)
[2018-05-03] MEDS ORDERED: APIX5TAB PO (09:47)
[2018-05-03] MEDS ORDERED: OMEP20 PO (09:48)
[2018-05-03] MEDS ORDERED: FURO20 PO (09:48)
[2018-05-03] MEDS ORDERED: METO-558 PO (09:48)
[2018-05-03] MEDS ORDERED: SLOWK8 PO (09:49)
[2018-05-03] MEDS ORDERED: VERA180SR PO (09:50)
== END 2018-05-03 14:52 | disposition home or self-care (01) | DRG 750 ==
LOC: 3EC 15:56 → 3EI 05-02 18:55
DX: F25.0 Schizoaffective disorder, bipolar type (principal); I11.0 Hypertensive heart disease with heart failure; I50.32 Chronic diastolic (congestive) heart failure; I48.91 Unspecified atrial fibrillation; D50.9 Iron deficiency anemia, unspecified; D53.9 Nutritional anemia, unspecified; F12.10 Cannabis abuse, uncomplicated; E78.00 Pure hypercholesterolemia, unspecified; J44.9 Chronic obstructive pulmonary disease, unspecified; K21.9 Gastro-esophageal reflux disease without esophagitis; F14.10 Cocaine abuse, uncomplicated; E03.9 Hypothyroidism, unspecified; E55.9 Vitamin D deficiency, unspecified; G47.00 Insomnia, unspecified; Z79.899 Other long term (current) drug therapy; Z90.49 Acquired absence of other specified parts of digestive tract
CPT/HCPCS: 83036; 83735; 84100; 87081; 94640; J3535

== ENCOUNTER 2018-07-15 08:50 | Emergency (ER) | payer MEDICAID, OTHER ==
[~2018-07-15] VITALS: Ht 167.6 cm; Wt 98.0 kg
[~2018-07-15 08:50] MED LIST changes: +APIX5TAB PO; -DILT240C93 PO; +DSS100 PO; +FURO20 PO; +METO-558 PO; +OMEP20 PO; +QUET100T33 PO; +QUET200T29 PO; +SLOWK8 PO; +VERA180SR PO
[2018-07-15] MEDS ORDERED: DILTIAZEM HCL 5 MG/ML 5 ML VIAL IVP ONE (09:15)
[2018-07-15 10:11] LABS: BASOPHILS % (AUTO) 1.2 % (0.0-2.0); EOSINOPHILS % (AUTO) 0.6 % (1.0-6.0); HEMATOCRIT 31.2 % (36-46); HEMOGLOBIN 10.1 g/dL (12.0-16.0); LYMPHOCYTES # (AUTO) 1.1 K/uL (1.0-4.8); LYMPHOCYTES % (AUTO) 18.8 % (22.0-44.0); MEAN CORPUSCULAR HEMOGLOBIN 27.2 pg (26.0-34.0); MEAN CORPUSCULAR HGB CONC 32.3 G/dL (31.0-37.0); MEAN CORPUSCULAR VOLUME 84 fL (80-100); MONOCYTES # (AUTO) 0.6 K/uL (0.1-1.0); MONOCYTES % (AUTO) 11.3 % (2.0-9.0); NEUTROPHILS # (AUTO) 3.8 K/uL (1.8-7.7); NEUTROPHILS % (AUTO) 68.1 % (40.0-70.0); PLATELET COUNT (AUTO) 276 K/uL (150-450); RED BLOOD CELL COUNT(AUTO) 3.71 MIL/uL (4.00-5.20); RED CELL DISTRIBUTION WIDTH 20.3 % (11.5-14.5)
[2018-07-15 10:14] LABS: ANION GAP 8 mmol/L (8-16); CALCIUM, TOTAL 8.4 mg/dL (8.8-10.5); CARBON DIOXIDE 27 mmol/L (22-29); CHLORIDE 106 mmol/L (98-107); CREATININE 0.77 mg/dL (0.60-1.30); GLOMERULAR FILTR. RATE CALC > 60 mL/min (>60); GLUCOSE,RANDOM 119 mg/dL (70-110); POTASSIUM 3.9 mmol/L (3.5-5.1); SODIUM SERUM 141 mmol/L (136-145); UREA NITROGEN, BLOOD 14 mg/dL (7-18)
[2018-07-15] MEDS ORDERED: IPRATROPIUM BROMIDE 0.5 MG/2.5 ML NEB SOLUTION NEB ONE (10:15)
[2018-07-15] MEDS ORDERED: LEVALBUTEROL HCL 1.25 MG/0.5 ML NEB SOLUTION NEB ONE (10:15)
[2018-07-15 10:20] LABS: ALANINE AMINOTRANSFERASE 34 U/L (12-78); ALBUMIN 3.2 g/dL (3.4-5.0); ALKALINE PHOSPHATASE 105 U/L (46-116); ASPARTATE AMINOTRANSFERASE 25 U/L (15-37); BILIRUBIN,TOTAL 0.4 mg/dL (0.1-1.0); LIPASE 58 U/L (73-393); TOTAL PROTEIN, SERUM 6.6 g/dL (6.4-8.2)
[2018-07-15 10:27] LABS: B-TYPE NATRIURETIC PEPTIDE 799 pg/mL (0-100)
[2018-07-15 10:41] LABS: INR 1.4 (0.9-1.1); PROTHROMBIN TIME 14.7 SEC (9.4-11.6)
[2018-07-15 10:50] VITALS: BP 159/119
== END 2018-07-15 11:00 | disposition left against medical advice (07) ==
LOC: EMS 08:51
DX: I11.0 Hypertensive heart disease with heart failure (principal); I50.9 Heart failure, unspecified; F17.210 Nicotine dependence, cigarettes, uncomplicated; F13.20 Sedative, hypnotic or anxiolytic dependence, uncomplicated; F20.9 Schizophrenia, unspecified; I48.91 Unspecified atrial fibrillation; E78.00 Pure hypercholesterolemia, unspecified; G93.40 Encephalopathy, unspecified; Z79.01 Long term (current) use of anticoagulants; Z79.82 Long term (current) use of aspirin; Z79.899 Other long term (current) drug therapy; Z88.8 Allergy status to other drugs, medicaments and biological substances
CPT/HCPCS: 36415; 71045; 80053; 83690; 83880; 84484; 85025; 85610; 93005; 94640; 96374; 99285; G0480; J3490

== ENCOUNTER 2018-08-11 03:03 | Emergency (ER) | payer OTHER ==
[~2018-08-11] VITALS: Ht 172.7 cm; Wt 95.0 kg
[2018-08-11 03:18] LABS: GLUCOSE,POINT OF CARE 150 MG/DL (70-110)
[2018-08-11] MEDS ORDERED: DILTIAZEM HCL 5 MG/ML 5 ML VIAL IVP ONE (04:00)
[2018-08-11 04:11] LABS: APPEARANCE,URINE CLEAR (CLEAR); BILIRUBIN,URINE NEGATIVE (NEGATIVE); GLUCOSE, URINE (UA) NEGATIVE (NEGATIVE); KETONES,URINE NEGATIVE (NEGATIVE); LEUKOCYTE ESTERASE ,URINE NEGATIVE (NEGATIVE); NITRATE,URINE NEGATIVE (NEGATIVE); OCCULT BLOOD,URINE NEGATIVE (NEGATIVE); UROBILINOGEN,URINE 0.2 mg/dL (<=1.0)
[2018-08-11 04:12] LABS: PROTEIN,URINE NEGATIVE (NEGATIVE)
[2018-08-11 04:16] LABS: AMPHET/METH SCREEN,URINE POSITIVE (NEGATIVE); BARBITURATE SCREEN, URINE NEGATIVE (NEGATIVE); BENZODIAZEPINES SCREEN,URINE NEGATIVE (NEGATIVE); CANNABINOID SCREEN,URINE POSITIVE (NEGATIVE); COCAINE SCREEN,URINE NEGATIVE (NEGATIVE); METHADONE SCREEN, URINE NEGATIVE (NEGATIVE); OPIATE SCREEN,URINE NEGATIVE (NEGATIVE); PHENCYCLIDINE SCREEN,URINE NEGATIVE (NEGATIVE)
[2018-08-11 04:18] LABS: BASOPHILS % (AUTO) 1.3 % (0.0-2.0); EOSINOPHILS % (AUTO) 0.6 % (1.0-6.0); HEMATOCRIT 31.4 % (36-46); HEMOGLOBIN 10.2 g/dL (12.0-16.0); LYMPHOCYTES # (AUTO) 1.1 K/uL (1.0-4.8); MEAN CORPUSCULAR HEMOGLOBIN 27.5 pg (26.0-34.0); MEAN CORPUSCULAR HGB CONC 32.6 G/dL (31.0-37.0); MEAN CORPUSCULAR VOLUME 84 fL (80-100); MONOCYTES # (AUTO) 0.6 K/uL (0.1-1.0); MONOCYTES % (AUTO) 9.5 % (2.0-9.0); NEUTROPHILS # (AUTO) 4.5 K/uL (1.8-7.7); NEUTROPHILS % (AUTO) 71.6 % (40.0-70.0); PLATELET COUNT (AUTO) 283 K/uL (150-450); RED BLOOD CELL COUNT(AUTO) 3.72 MIL/uL (4.00-5.20)
[2018-08-11 04:19] LABS: ANION GAP 10 mmol/L (8-16); CALCIUM, TOTAL 8.5 mg/dL (8.8-10.5); CARBON DIOXIDE 25 mmol/L (22-29); CHLORIDE 108 mmol/L (98-107); CREATININE 0.96 mg/dL (0.60-1.30); GLOMERULAR FILTR. RATE CALC > 60 mL/min (>60); GLUCOSE,RANDOM 132 mg/dL (70-110); POTASSIUM 3.6 mmol/L (3.5-5.1); SODIUM SERUM 143 mmol/L (136-145); UREA NITROGEN, BLOOD 16 mg/dL (7-18)
[2018-08-11 04:26] LABS: ALANINE AMINOTRANSFERASE 20 U/L (12-78); ALBUMIN 3.2 g/dL (3.4-5.0); ALKALINE PHOSPHATASE 93 U/L (46-116); ASPARTATE AMINOTRANSFERASE 20 U/L (15-37); BILIRUBIN,TOTAL 0.3 mg/dL (0.1-1.0); TOTAL PROTEIN, SERUM 6.7 g/dL (6.4-8.2)
[2018-08-11] MEDS ORDERED: VERAPAMIL HCL 180 MG ER TABLET PO ONE (05:00)
[2018-08-11 05:58] VITALS: BP 146/88
== END 2018-08-11 06:15 | disposition home or self-care (01) ==
LOC: EMS 03:04
DX: I48.91 Unspecified atrial fibrillation (principal); F25.9 Schizoaffective disorder, unspecified; R60.9 Edema, unspecified; F41.9 Anxiety disorder, unspecified; I11.0 Hypertensive heart disease with heart failure; I50.9 Heart failure, unspecified; E78.00 Pure hypercholesterolemia, unspecified; E11.9 Type 2 diabetes mellitus without complications; F17.210 Nicotine dependence, cigarettes, uncomplicated; F19.90 Other psychoactive substance use, unspecified, uncomplicated; F13.90 Sedative, hypnotic, or anxiolytic use, unspecified, uncomplicated; Z91.14 Patient's other noncompliance with medication regimen; Z88.8 Allergy status to other drugs, medicaments and biological substances
CPT/HCPCS: 36415; 71045; 80053; 80307; 81003; 82962; 84484; 85025; 93005; 96374; 99285; G0480; J3490

== ENCOUNTER 2018-08-21 00:35 | Inpatient (IN) | payer MEDICAID, OTHER ==
[~2018-08-21] VITALS: Ht 167.6 cm; Wt 81.0 kg
[2018-08-21 01:04] LABS: GLUCOSE,POINT OF CARE 164 MG/DL (70-110)
[2018-08-21 01:41] LABS: BASOPHILS % (AUTO) 1.2 % (0.0-2.0); EOSINOPHILS % (AUTO) 0.5 % (1.0-6.0); HEMATOCRIT 34.7 % (36-46); LYMPHOCYTES # (AUTO) 1.3 K/uL (1.0-4.8); LYMPHOCYTES % (AUTO) 16.5 % (22.0-44.0); MEAN CORPUSCULAR HEMOGLOBIN 27.1 pg (26.0-34.0); MEAN CORPUSCULAR HGB CONC 31.7 G/dL (31.0-37.0); MEAN CORPUSCULAR VOLUME 86 fL (80-100); MONOCYTES # (AUTO) 0.7 K/uL (0.1-1.0); MONOCYTES % (AUTO) 8.8 % (2.0-9.0); NEUTROPHILS # (AUTO) 5.7 K/uL (1.8-7.7); PLATELET COUNT (AUTO) 261 K/uL (150-450); RED BLOOD CELL COUNT(AUTO) 4.05 MIL/uL (4.00-5.20); RED CELL DISTRIBUTION WIDTH 23.1 % (11.5-14.5)
[2018-08-21 01:47] LABS: ANION GAP 9 mmol/L (8-16); CALCIUM, TOTAL 8.9 mg/dL (8.8-10.5); CARBON DIOXIDE 25 mmol/L (22-29); CHLORIDE 110 mmol/L (98-107); CREATININE 1.01 mg/dL (0.60-1.30); GLOMERULAR FILTR. RATE CALC > 60 mL/min (>60); GLUCOSE,RANDOM 149 mg/dL (70-110); POTASSIUM 4.2 mmol/L (3.5-5.1); SODIUM SERUM 144 mmol/L (136-145); UREA NITROGEN, BLOOD 20 mg/dL (7-18)
[2018-08-21 01:52] LABS: ALANINE AMINOTRANSFERASE 66 U/L (12-78); ALBUMIN 3.3 g/dL (3.4-5.0); ALKALINE PHOSPHATASE 112 U/L (46-116); ASPARTATE AMINOTRANSFERASE 48 U/L (15-37); BILIRUBIN,TOTAL 0.3 mg/dL (0.1-1.0); TOTAL PROTEIN, SERUM 6.9 g/dL (6.4-8.2)
[2018-08-21] MEDS ORDERED: LORazepam 1 MG TABLET PO ONE (02:15)
[2018-08-21] MEDS ORDERED: QUEtiapine FUMARATE 100 MG TABLET PO ONE (02:15)
[2018-08-21 02:29] LABS: AMPHET/METH SCREEN,URINE NEGATIVE (NEGATIVE); BARBITURATE SCREEN, URINE POSITIVE (NEGATIVE); BENZODIAZEPINES SCREEN,URINE NEGATIVE (NEGATIVE); CANNABINOID SCREEN,URINE POSITIVE (NEGATIVE); COCAINE SCREEN,URINE NEGATIVE (NEGATIVE); METHADONE SCREEN, URINE NEGATIVE (NEGATIVE); OPIATE SCREEN,URINE NEGATIVE (NEGATIVE); PHENCYCLIDINE SCREEN,URINE NEGATIVE (NEGATIVE)
[2018-08-21] MEDS ORDERED: ZOLPIDEM TARTRATE 10 MG TABLET PO PRN (06:00)
[2018-08-21] MEDS ORDERED: HALOPERIDOL 5 MG TABLET PO PRN (06:00)
[2018-08-21 06:24] LABS: APPEARANCE,URINE CLEAR (CLEAR); BILIRUBIN,URINE NEGATIVE (NEGATIVE); GLUCOSE, URINE (UA) NEGATIVE (NEGATIVE); KETONES,URINE NEGATIVE (NEGATIVE); LEUKOCYTE ESTERASE ,URINE NEGATIVE (NEGATIVE); NITRATE,URINE NEGATIVE (NEGATIVE); OCCULT BLOOD,URINE NEGATIVE (NEGATIVE); PH,URINE 6.5 (5.0-8.0); PROTEIN,URINE TRACE (NEGATIVE); UROBILINOGEN,URINE 0.2 mg/dL (<=1.0)
[2018-08-21] MEDS: LORazepam 2 MG TABLET PO PRN (12:00)
[2018-08-21 18:59] LABS: GLUCOSE,POINT OF CARE 208 MG/DL (70-110)
[2018-08-21] MEDS ORDERED: MAG HYDROX/AL HYDROX/SIMETH ES 30 ML SUSPENSION UDCUP PO PRN (22:15)
[2018-08-21] MEDS ORDERED: ONDANSETRON HCL 4 MG TABLET PO PRN (22:15)
[2018-08-21] MEDS ORDERED: GuaiFENesin/D-METHORPHAN [SUGAR-FREE] 200-20MG/10 ML SYRUP UDCUP PO PRN (22:15)
[2018-08-21] MEDS ORDERED: DOCUSATE SODIUM 100 MG CAPSULE PO PRN (22:15)
[2018-08-21] MEDS ORDERED: MAGNESIUM HYDROXIDE SUSPENSION 30 ML UDCUP PO PRN (22:15)
[2018-08-21] MEDS ORDERED: NICOTINE 14 MG/24 HOUR PATCH TD PRN (22:15)
[2018-08-21] MEDS ORDERED: PETROLATUM,WHITE 71 GM JELLY TP PRN (22:15)
[2018-08-21] MEDS ORDERED: ACETAMINOPHEN 325 MG TABLET PO PRN (22:15)
[2018-08-21] MEDS ORDERED: CloNIDine HCL 0.1 MG TABLET PO PRN (22:15)
[2018-08-21] MEDS ORDERED: LOPERAMIDE HCL 2 MG CAPSULE PO PRN (22:15)
[2018-08-22] MEDS: IBUPROFEN 400 MG TABLET PO PRN ×2 (04:30→12:28)
[2018-08-22 05:30] VITALS: BP 133/90
[2018-08-22] MEDS: LORazepam 2 MG TABLET PO PRN ×2 (05:32→12:27)
[2018-08-22 06:55] LABS: BASOPHILS % (AUTO) 1.3 % (0.0-2.0); EOSINOPHILS % (AUTO) 1.8 % (1.0-6.0); HEMOGLOBIN 10.3 g/dL (12.0-16.0); LYMPHOCYTES % (AUTO) 26.2 % (22.0-44.0); MEAN CORPUSCULAR HGB CONC 32.2 G/dL (31.0-37.0); MEAN CORPUSCULAR VOLUME 84 fL (80-100); MONOCYTES # (AUTO) 0.6 K/uL (0.1-1.0); MONOCYTES % (AUTO) 15.1 % (2.0-9.0); NEUTROPHILS # (AUTO) 2.2 K/uL (1.8-7.7); NEUTROPHILS % (AUTO) 55.6 % (40.0-70.0); PLATELET COUNT (AUTO) 240 K/uL (150-450); RED BLOOD CELL COUNT(AUTO) 3.82 MIL/uL (4.00-5.20); RED CELL DISTRIBUTION WIDTH 22.4 % (11.5-14.5)
[2018-08-22 07:24] LABS: HEMOGLOBIN A1C 6.2 % (4.5-6.2)
[2018-08-22 07:44] LABS: ALANINE AMINOTRANSFERASE 55 U/L (12-78); ALBUMIN 2.8 g/dL (3.4-5.0); ALKALINE PHOSPHATASE 86 U/L (46-116); ANION GAP 7 mmol/L (8-16); ASPARTATE AMINOTRANSFERASE 36 U/L (15-37); BILIRUBIN,TOTAL 0.3 mg/dL (0.1-1.0); CALCIUM, TOTAL 8.3 mg/dL (8.8-10.5); CARBON DIOXIDE 26 mmol/L (22-29); CHLORIDE 108 mmol/L (98-107); CHOL/HDL RATIO 2.4 (3.9-5.7); CHOLESTEROL 112 mg/dL (131-200); CREATININE 0.87 mg/dL (0.60-1.30); GLOMERULAR FILTR. RATE CALC > 60 mL/min (>60); GLUCOSE,RANDOM 87 mg/dL (70-110); HDL CHOLESTEROL 46 mg/dL (40-60); LDL CHOL (CALC.) 57 mg/dL (0-130); POTASSIUM 4.5 mmol/L (3.5-5.1); SODIUM SERUM 141 mmol/L (136-145); THYROID STIMULATING HORMONE 1.42 uIU/mL (0.36-3.74); TOTAL PROTEIN, SERUM 6.2 g/dL (6.4-8.2); TRIGLYCERIDES 45 mg/dL (15-150); UREA NITROGEN, BLOOD 16 mg/dL (7-18)
[2018-08-22 08:00] VITALS: BP 129/71
[2018-08-22] MEDS: ALBUTEROL SULFATE HFA 90 MCG/PUFF 8 GM INHALER IH PRN (10:37)
[2018-08-22] MEDS: QUEtiapine FUMARATE 100 MG TABLET PO SCH (16:16)
[2018-08-22 16:18] VITALS: BP 131/82
[2018-08-22] MEDS: BACLOFEN 10 MG TABLET PO PRN (16:18)
[2018-08-22] MEDS ORDERED: FUROSEMIDE 20 MG TABLET PO ONE (17:15)
[2018-08-22] MEDS: FERROUS SULFATE 325 MG EC TABLET PO SCH (17:28)
[2018-08-22] MEDS: DIVALPROEX SODIUM 500 MG DR TABLET PO SCH (21:13)
[2018-08-22] MEDS: QUEtiapine FUMARATE 200 MG TABLET PO SCH (21:13)
[2018-08-23] MEDS: LORazepam 2 MG TABLET PO PRN (01:07)
[2018-08-23] MEDS: ALBUTEROL SULFATE HFA 90 MCG/PUFF 8 GM INHALER IH PRN ×2 (06:14→20:23)
[2018-08-23] MEDS: FERROUS SULFATE 325 MG EC TABLET PO SCH ×3 (06:58→16:06)
[2018-08-23] MEDS: BACLOFEN 10 MG TABLET PO PRN (08:06)
[2018-08-23] MEDS: QUEtiapine FUMARATE 100 MG TABLET PO SCH ×2 (08:07→16:06)
[2018-08-23] MEDS: FLUTICASONE/VILANTEROL 100-25 MCG/INH INHALER [14] IH SCH (08:09)
[2018-08-23 08:16] VITALS: BP 135/85
[2018-08-23] MEDS: IBUPROFEN 400 MG TABLET PO PRN (10:25)
[2018-08-23 17:26] VITALS: BP 114/82
[2018-08-23] MEDS: DIVALPROEX SODIUM 500 MG DR TABLET PO SCH (20:13)
[2018-08-23] MEDS: QUEtiapine FUMARATE 200 MG TABLET PO SCH (20:14)
[2018-08-24 00:20] VITALS: BP 108/76
[2018-08-24] MEDS: IBUPROFEN 400 MG TABLET PO PRN ×2 (00:20→12:28)
[2018-08-24] MEDS: FERROUS SULFATE 325 MG EC TABLET PO SCH ×2 (07:06→12:07)
[2018-08-24] MEDS: QUEtiapine FUMARATE 100 MG TABLET PO SCH (08:00)
[2018-08-24] MEDS: BACLOFEN 10 MG TABLET PO PRN (08:02)
[2018-08-24] MEDS: FLUTICASONE/VILANTEROL 100-25 MCG/INH INHALER [14] IH SCH (08:19)
[2018-08-24 09:34] VITALS: BP 146/70
[2018-08-24] MEDS ORDERED: FLUT1AER IH (14:22)
[2018-08-24] MEDS ORDERED: QUET100T PO (14:22)
[2018-08-24] MEDS ORDERED: QUET200T PO (14:22)
[2018-08-24] MEDS ORDERED: DIVA-78 PO (14:22)
[2018-08-24] MEDS ORDERED: FERR-89 PO (14:22)
[2018-08-24] MEDS: ALBUTEROL SULFATE HFA 90 MCG/PUFF 8 GM INHALER IH PRN (16:03)
[2018-08-24 16:38] VITALS: BP 110/68
== END 2018-08-24 16:30 | disposition home or self-care (01) | DRG 750 ==
LOC: EMS 00:37 → 3EC 19:07
PROVIDERS: ADMIT Psychiatry & Neurology Child & Adolescent Psychiatry; ATTEND Psychiatry & Neurology Psychiatry
DX: F25.0 Schizoaffective disorder, bipolar type (principal); R45.851 Suicidal ideations; I11.0 Hypertensive heart disease with heart failure; I50.9 Heart failure, unspecified; I48.2 Chronic atrial fibrillation; E11.9 Type 2 diabetes mellitus without complications; D64.9 Anemia, unspecified; D72.819 Decreased white blood cell count, unspecified; E78.5 Hyperlipidemia, unspecified; J44.9 Chronic obstructive pulmonary disease, unspecified; F17.200 Nicotine dependence, unspecified, uncomplicated; F19.10 Other psychoactive substance abuse, uncomplicated; Z71.6 Tobacco abuse counseling; F10.10 Alcohol abuse, uncomplicated; Z71.41 Alcohol abuse counseling and surveillance of alcoholic; E03.9 Hypothyroidism, unspecified; E78.00 Pure hypercholesterolemia, unspecified; F14.10 Cocaine abuse, uncomplicated; F41.9 Anxiety disorder, unspecified; Z79.899 Other long term (current) drug therapy; Z91.19 Patient's noncompliance with other medical treatment and regimen
CPT/HCPCS: 83036; 84443; G0480; J3535